=== PATIENT | female | born 1980 | race Caucasian/White ===

== ENCOUNTER 2019-09-13 20:27 | Emergency (ER) | payer SELFPAY ==
[2019-09-13 20:45] VITALS: BP 110/71; PULSE 88; TEMP 98.7; BMI 25.0
[2019-09-13] MEDS ORDERED: ACETAMINOPHEN 325 MG TABLET (FP) PO ONE (21:05)
[2019-09-13] MEDS ORDERED: DIPHTH,PERTUSS(ACELL),TET 0.5 ML DISP.SYRIN IM ONE ×2 (21:05→21:32)
--- NOTE | 2019-09-13 21:08 | PDOC ---
History of Present Illness - General Chief Complaint: Injury Stated Complaint: LACERATION Time Seen by Provider: 09/13/19 20:49 History Source: Patient Exam Limitations: No Limitations - History of Present Illness Initial Comments: 09/13/19 21:06 HISTORY OF PRESENT ILLNESS: 39-year-old female presents to the emergency department for evaluation of laceration to the dorsum of the right foot sustained approximately 1 hour prior to arrival. Patient states she was washing dishes when a dish rolled off the counter falling striking her foot breaking the glass and lacerating the top of her foot. Patient is unsure of her last tetanus shot. No recent travel or sick contacts. PAST MEDICAL HISTORY: Denies past medical history SURGICAL HISTORY: Denies ALLERGIES: No known drug allergies REVIEW OF SYSTEMS General/Constitutional: Denies fever or chills. Denies weakness, weight change. HEENT: Denies change in vision. Denies ear pain or discharge. Denies sore throat. Cardiovascular: Denies chest pain or shortness of breath. Respiratory: Denies cough, wheezing, or hemoptysis. Gastrointestinal: Denies nausea, vomiting, diarrhea or constipation. Denies rectal bleeding. Genitourinary: Denies dysuria, frequency, or change in urination. Musculoskeletal: Denies joint or muscle swelling or pain. Denies neck or back pain. Skin and breasts: See HPI Neurologic: Denies headache, vertigo, loss of consciousness, or loss of sensation. Psychiatric: Denies depression or anxiety. Endocrine: Denies increased thirst. Denies abnormal weight change. Hematologic/Lymphatic: Denies anemia, easy bleeding, or history of blood clots. Allergic/Immunologic: Denies hives or skin allergy. Denies latex allergy. PHYSICAL EXAM General Appearance: Well-appearing, appropriately dressed. No apparent distress , no intoxication. Respiratory/Chest: Lungs CTAB. No shortness of breath, chest tenderness, respiratory distress, accessory muscle use. No crackles, rales, rhonchi, stridor , wheezing, dullness Cardiovascular: RRR. S1, S2. No JVD, murmur, bradycardia, tachycardia. Vascular Pulses: Dorsalis-Pedis (R): 2+, Dorsalis-Pedis (L): 2+ Musculoskeletal/Extremities: Normal inspection. Normal capillary refill. Pelvis Stable. No CVA tenderness. No tenderness to extremities, pedal edema, erythema or deformity. Full flexion and extension of the right toes noted. Full sensation distal to the injury. Swelling and slight hyperpigmented discoloration present distal to laceration-? forming hematoma. Integumentary: Approximate 1 cm linear superficial laceration present to the dorsum of the right foot over the second metatarsal. Past History - Past Medical History Allergies/Adverse Reactions: Allergies Allergy/AdvReac Type Severity Reaction Status Date / Time No Known Allergies Allergy Verified 09/13/19 21:12 Home Medications: Ambulatory Orders NK [No Known Home Medication] 09/13/19 COPD: No - Psycho Social/Smoking Cessation Hx Smoking History: Never smoked *Physical Exam - Vital Signs Last Vital Signs Temp Pulse Resp BP Pulse Ox 98.7 F 88 19 110/71 100 09/13/19 20:34 09/13/19 20:34 09/13/19 20:34 09/13/19 20:34 09/13/19 20:34 Procedures - Consent Consent obtained: Verbal, From Patient - Laceration/Wound Repair Right Dorsal Foot Wound Length: to 2.5 cm Wound Explored: clean Wound's Depth, Shape: superficial, linear Irrigated w/ Saline: Yes Betadine Prep: Yes Anesthesia: 1% Lidocaine w/ Epi Amount of Anesthetic (ccs): 2 Wound Debrided: moderate Wound Repaired With: Sutures Suture Size/Type: 4:0, nylon Number of Sutures: 3 Layer Closure: Yes (Figure 8 suture placed for hemostasis) Deep Layer Suture Size/Type: 4:0, chromic Number of Deep Layer Sutures: 2 Sterile Dressing Applied: Yes Splint Applied: No Progress: 09/13/19 23:49 Neurovascular status after repair is within normal limits and unchanged from prior to suturing. Patient tolerated well. 09/13/19 23:49 Medical Decision Making - Medical Decision Making 09/13/19 21:08 A/P: 39-year-old woman with laceration to the dorsum of the right foot X-ray to evaluate for foreign body Boostrix Laceration repair-see procedure note for details Likely discharge 09/13/19 23:47 X-rays of the right foot as read by me: No acute fractures or dislocations are present. Minor soft tissue swelling to the dorsum of the right foot. No foreign bodies are noted. Discharge home Discharge - Discharge Information Problems reviewed: Yes Clinical Impression/Diagnosis: Laceration of foot Qualifiers: Encounter type: initial encounter Laterality: right Qualified Code(s): S91.311A - Laceration without foreign body, right foot, initial encounter Condition: Stable Disposition: HOME - Admission No - Follow up/Referral - Patient Discharge Instructions Patient Printed Discharge Instructions: DI for Laceration Repair Additional Instructions: Keep wound clean and dry Avoid strenuous activity/exercise to create a hot or sweaty environment until sutures are removed Reapply bacitracin ointment 2 times a day until sutures are removed Return to emergency Department or private physician in 7-10 days for suture removal May use Tylenol or Motrin for pain relief Return immediately to emergency department for redness, swelling, pain, or signs of infection - Post Discharge Activity
[2019-09-13] MEDS ORDERED: ACETAMINOPHEN 325 MG TABLET (FP) ONE (21:25)
[2019-09-13] MEDS ORDERED: LIDOCAINE 1%/EPI 1:100000 (20 ML MULTI DOSE VIAL) ONE (22:00)
--- NOTE | 2019-09-14 00:14 | PDOC ---
*Physical Exam - Vital Signs Last Vital Signs Temp Pulse Resp BP Pulse Ox 98.7 F 88 19 110/71 100 09/13/19 20:34 09/13/19 20:34 09/13/19 20:34 09/13/19 20:34 09/13/19 20:34 ED Treatment Course - Medications Given in the ED: ED Medications Discontinued Medications Generic Name Dose Route Start Last Admin Trade Name Easton PRN Reason Stop Dose Admin Acetaminophen 975 mg 09/13/19 21:05 09/13/19 21:26 Tylenol - PO 09/13/19 21:06 975 mg ONCE ONE Administration Diphtheria/Tetanus/Acell Pertussis 0.5 ml 09/13/19 21:05 09/13/19 21:33 Boostrix - IM 09/13/19 21:06 0.5 ml .ONCE ONE Administration Medical Decision Making - Medical Decision Making 09/14/19 00:13 Case reviewed, agree with assessment and plan Discharge - Discharge Information Problems reviewed: Yes Clinical Impression/Diagnosis: Laceration of foot Qualifiers: Encounter type: initial encounter Laterality: right Qualified Code(s): S91.311A - Laceration without foreign body, right foot, initial encounter Condition: Stable Disposition: HOME - Follow up/Referral - Patient Discharge Instructions Patient Printed Discharge Instructions: DI for Laceration Repair Additional Instructions: Keep wound clean and dry Avoid strenuous activity/exercise to create a hot or sweaty environment until sutures are removed Reapply bacitracin ointment 2 times a day until sutures are removed Return to emergency Department or private physician in 7-10 days for suture removal May use Tylenol or Motrin for pain relief Return immediately to emergency department for redness, swelling, pain, or signs of infection - Post Discharge Activity
== END 2019-09-13 23:18 | disposition home or self-care (01) ==
LOC: JER 20:27
PROC: 3E0234Z Introduction of Serum, Toxoid and Vaccine into Muscle, Percutaneous Approach (ICD-10-PCS; principal; 2019-09-13)
DX: S91.311A Laceration without foreign body, right foot, initial encounter (principal); W25.XXXA Contact with sharp glass, initial encounter; Y93.G1 Activity, food preparation and clean up; Y92.9 Unspecified place or not applicable
CPT/HCPCS: 73630-TC-RT-FY; 90715; 99282-25

== ENCOUNTER 2020-04-09 16:25 | Inpatient (IN) | payer OTHER ==
--- NOTE | 2020-04-09 16:33 | PDOC ---
Rapid Medical Evaluation Chief Complaint: Pain, Acute Time Seen by Provider: 04/09/20 16:28 Medical Evaluation: Allergies Allergy/AdvReac Type Severity Reaction Status Date / Time No Known Allergies Allergy Verified 04/09/20 16:28 04/09/20 16:28 39 year old female no pmhx complaining of lower abdominal pain x 2 days r/o appendicitis sent by macie PUTNAM pshx of hemorrhoid removal PE: RRR CTA TTP to RLQ and LLQ Plan: Abdominal labs GI cocktail Reassess for potential for CT Pt moved to ED for further eval
[2020-04-09] MEDS ORDERED: MAG HYDROX/AL HYDROX/SIMETH 30 ML UNIT-DOSE CUP PO ONE (16:34)
[2020-04-09] MEDS ORDERED: ACETAMINOPHEN 500 MG TABLET (FP) PO ONE (16:35)
[2020-04-09] MEDS ORDERED: ONDANSETRON 4 MG/2 ML VIAL IVPUSH ONE ×3 (16:35→22:20)
[2020-04-09 17:18] LABS: EPI CELLS 16 /uL (0-25.1); HYALINE CASTS 2 /uL (0-3.1); PH,URINE 5.5 (5.0-8.0); URINE APPEARANCE CLEAR; URINE BACTERIA 69 /uL (0-1359); URINE BILIRUBIN NEGATIVE (NEGATIVE); URINE COLOR YELLOW; URINE GLUCOSE (UA) NEGATIVE (NEGATIVE); URINE KETONE TRACE (NEGATIVE); URINE LEUK ESTERASE NEGATIVE (NEGATIVE); URINE NITRITE NEGATIVE (NEGATIVE); URINE PROTEIN 1+ (NEGATIVE); URINE RBC 180 /uL (0-23.9); URINE UROBILINOGEN 4.0 E.U/dl mg/dL (0.2-1.0); URINE WBC 10 /uL (0-25.8)
[2020-04-09] MEDS ORDERED: FAMOTIDINE 20 MG/50 ML IVPB 20 MG/50 ML MG IVPB ONE ×2 (17:39→18:53)
[2020-04-09] MEDS ORDERED: ACETAMINOPHEN INJECTION 100 ML IVPB ONE (17:39)
[2020-04-09 18:00] LABS: BASO % 0.1 % (0-2.0); HEMATOCRIT 36.5 % (32.4-45.2); HEMOGLOBIN 12.1 GM/dL (10.7-15.3); LYMPH % 7.2 % (8-40); MCH 27.1 pg (25.7-33.7); MCHC 33.1 g/dl (32.0-36.0); MEAN CELL VOLUME 81.9 fl (80-96); MEAN PLT VOLUME 8.4 fl (7.5-11.1); MONO % 3.3 % (3.8-10.2); NEUT % 88.4 % (42.8-82.8); PLATELET COUNT 246 K/MM3 (134-434); RBC 4.46 M/mm3 (3.60-5.2); RDW 14.2 % (11.6-15.6); WHITE BLOOD COUNT 13.6 K/mm3 (4.0-10.0)
[2020-04-09 18:25] LABS: ALBUMIN 4.3 g/dl (3.4-5.0); ALK PHOS 86 U/L (45-117); ANION GAP 9 MMOL/L (8-16); BILIRUBIN,TOTAL 0.7 mg/dL (0.2-1); CALCIUM 9.3 mg/dL (8.5-10.1); CHLORIDE 103 mmol/L (98-107); CO2 24 mmol/L (21-32); CREATININE 0.8 mg/dL (0.55-1.3); GLUCOSE,RANDOM 93 mg/dL (74-106); LIPASE 85 U/L (73-393); POTASSIUM 3.5 mmol/L (3.5-5.1); SGOT/AST 11 U/L (15-37); SGPT/ALT 12 U/L (13-61); SODIUM 136 mmol/L (136-145); TOT PROT 8.1 g/dl (6.4-8.2)
[2020-04-09] MEDS ORDERED: ACETAMINOPHEN 1000 MG/100 ML VIAL (NON FORMULARY) IVPB ONE (18:53)
[2020-04-09] MEDS ORDERED: HYDROmorphone HCL CARPU-JECT 2 MG/1 ML DISP.SYRIN IVPUSH ONE (20:50)
[2020-04-09] MEDS ORDERED: HYDROmorphone HCl 2 MG/ML VIAL ONE (21:04)
--- NOTE | 2020-04-09 22:36 | PDOC ---
History of Present Illness - General Chief Complaint: Pain, Acute Stated Complaint: SENT BY DOC Time Seen by Provider: 04/09/20 16:28 - History of Present Illness Initial Comments: 04/09/20 22:35 39-year-old female presents for evaluation of abdominal pain x3 days associated nausea one episode of diarrhea no comorbidities Past History - Medical History Allergies/Adverse Reactions: Allergies Allergy/AdvReac Type Severity Reaction Status Date / Time No Known Allergies Allergy Verified 04/09/20 16:28 Home Medications: Ambulatory Orders NK [No Known Home Medication] 09/13/19 COPD: No - Surgical History GI Surgery: Yes - Immunization History Immunization Up to Date: Yes - Psycho-Social/Smoking History Smoking History: Never smoked - Substance Abuse Hx (Audit-C & DAST Scrn) How often the patient has a drink containing alcohol: Never Score: In Men: 4 or > Positive; In Women: 3 or > Positive: 0 Screen Result (Pos requires Nsg. Audit-10AR): Negative In the last yr the pt used illegal drug/Rx for NonMed reason: No Score: Yes response is considered Positive: 0 Screen Result (Positive result requires Nsg. DAST-10): Negative Review of Systems - Review of Systems ABD/GI: Yes: See HPI, Diarrhea, Nausea. No: Vomiting *Physical Exam - Vital Signs Last Vital Signs Temp Pulse Resp BP Pulse Ox 98.4 F 72 20 111/69 100 04/09/20 16:30 04/09/20 21:42 04/09/20 16:30 04/09/20 21:42 04/09/20 21:42 - Physical Exam 04/09/20 22:35 GENERAL: The patient is awake, alert, and fully oriented, in no acute distress. HEAD: Normal with no signs of trauma. EYES: sclera anicteric, conjunctiva clear. ENT: Ears normal tympanic membranes normal oropharynx clear uvula midline NECK: Normal range of motion LUNGS: Breath sounds equal, clear to auscultation bilaterally. No wheezes, and no crackles. HEART: S1 and S2 without murmur, rub or gallop. ABDOMEN: Soft, Right and left lower quadrant tenderness without rebound or guarding, normoactive bowel sounds. No guarding, no rebound. No masses. EXTREMITIES: Normal range of motion, no edema. No clubbing or cyanosis. No cords, erythema, or tenderness. NEUROLOGICAL: Cranial nerves II through XII grossly intact. PSYCH: Normal mood, normal affect. SKIN: Warm, Dry, normal turgor, no rashes or lesions noted. ED Treatment Course - LABORATORY CBC & Chemistry Diagram: 04/09/20 17:15 04/09/20 17:15 - ADDITIONAL ORDERS Additional order review: Laboratory Results 04/09/20 04/09/20 04/09/20 17:15 17:15 17:15 PTT (Actin FS) Sodium Potassium Chloride Carbon Dioxide Anion Gap BUN Creatinine Est GFR (CKD-EPI)AfAm Est GFR (CKD-EPI)NonAf Random Glucose Lactic Acid 0.7 Calcium Total Bilirubin AST ALT Alkaline Phosphatase Total Protein Albumin Lipase Beta HCG, Quant Serum , Qual Negative Urine Color Urine Appearance Urine pH Ur Specific [place] Urine Protein Urine Glucose (UA) Urine Ketones Urine Blood Urine Nitrite Urine Bilirubin Urine Urobilinogen Ur Leukocyte Esterase Urine WBC (Auto) Urine RBC (Auto) Urine Casts (Auto) U Epithel Cells (Auto) Urine Bacteria (Auto) Blood Type A POSITIVE Antibody Screen Negative 04/09/20 04/09/20 04/09/20 17:15 17:15 17:10 PTT (Actin FS) 36.8 H Sodium 136 Potassium 3.5 Chloride 103 Carbon Dioxide 24 Anion Gap 9 BUN 8.0 Creatinine 0.8 Est GFR (CKD-EPI)AfAm 108.39 Est GFR (CKD-EPI)NonAf 93.52 Random Glucose 93 Lactic Acid Calcium 9.3 Total Bilirubin 0.7 AST 11 L ALT 12 L Alkaline Phosphatase 86 Total Protein 8.1 Albumin 4.3 Lipase 85 Beta HCG, Quant < 1.0 Serum , Qual Urine Color Yellow Urine Appearance Clear Urine pH 5.5 Ur Specific [place] 1.033 Urine Protein 1+ H Urine Glucose (UA) Negative Urine Ketones Trace H Urine Blood 3+ H Urine Nitrite Negative Urine Bilirubin Negative Urine Urobilinogen 4.0 e.u/dl H Ur Leukocyte Esterase Negative Urine WBC (Auto) 10 Urine RBC (Auto) 180 Urine Casts (Auto) 2 U Epithel Cells (Auto) 16 Urine Bacteria (Auto) 69 Blood Type Antibody Screen 04/09/20 17:15 RBC 4.46 MCV 81.9 MCHC 33.1 RDW 14.2 MPV 8.4 Neutrophils % 88.4 H Lymphocytes % 7.2 L Monocytes % 3.3 L Eosinophils % 1.0 Basophils % 0.1 - RADIOLOGY Radiology Studies Ordered: Category Date Time Status ABDOMEN & PELVIS CT W/O CONTR [CT] Stat CT Scan 04/09/20 19:12 Completed ABDOMEN & PELVIS CT WITH CONTR [CT] Stat CT Scan 04/09/20 20:53 Ordered - Medications Given in the ED: ED Medications Discontinued Medications Generic Name Dose Route Start Last Admin Trade Name Easton PRN Reason Stop Dose Admin Acetaminophen 1,000 mg 04/09/20 16:35 04/09/20 18:55 Tylenol - PO 04/09/20 16:36 Not Given ONCE ONE Acetaminophen 1,000 mg 04/09/20 18:53 04/09/20 18:55 Ofirmev Injection - IVPB 04/09/20 18:54 1,000 mg ONCE ONE Administration Al Hydroxide/Mg Hydroxide 30 ml 04/09/20 16:34 04/09/20 18:55 Mylanta Oral Suspension - PO 04/09/20 16:35 Not Given ONCE ONE Hydromorphone HCl 0.5 mg 04/09/20 20:50 04/09/20 21:15 Dilaudid Injection - IVPUSH 04/09/20 20:51 0.5 mg ONCE ONE Administration Famotidine/Sodium Chloride 20 mg in 50 mls @ 100 mls/hr 04/09/20 18:53 04/09/20 18:55 Pepcid 20 Mg Premixed Ivpb - IVPB 04/09/20 19:22 100 mls/hr ONCE ONE Administration Ondansetron HCl 4 mg 04/09/20 16:35 04/09/20 17:46 Zofran Injection IVPUSH 04/09/20 16:36 4 mg ONCE ONE Administration Ondansetron HCl 4 mg 04/09/20 20:50 04/09/20 21:15 Zofran Injection IVPUSH 04/09/20 20:51 4 mg ONCE ONE Administration Medical Decision Making - Medical Decision Making 04/09/20 22:35 Patient will be signed out to the emergency room for further evaluation and follow-up on p.o. and IV contrast CAT scan studies. This case was discussed with emergency room attending. Discharge - Discharge Information Problems reviewed: Yes Clinical Impression/Diagnosis: Abdominal pain - Follow up/Referral - Patient Discharge Instructions - Post Discharge Activity
--- NOTE | 2020-04-09 22:49 | PDOC ---
*Physical Exam - Vital Signs Last Vital Signs Temp Pulse Resp BP Pulse Ox 98.4 F 72 20 111/69 100 04/09/20 16:30 04/09/20 21:42 04/09/20 16:30 04/09/20 21:42 04/09/20 21:42 - Physical Exam Gen: AAOx 3, no acute distress, comfortable, no signs of respiratory distress HENT: atraumatic, normocephalic with no laceration or contusion. Nasal mucosa without erythema. Oropharynx without erythema or exudates. Mucous membranes moist. EYES: PERRL, EOM intact, conjunctiva pink NECK: supple; trachea midline; no JVD, no lymphadenopathy, or thyromegaly CV: RRR no murmurs, gallops, or rubs. CHEST: CTA b/l no wheezing, rales or rhonchi ABD: +BS/ND. TTP to LLQ and RLQ; soft, no rebound, voluntary guarding EXTREMITY: no cyanosis or erythema. 2+ dorsalis pedis, posterior tibial, and radial pulse. No pedal edema; no calf swelling or tenderness SKIN: no rash, warm and dry, no diaphoresis HEME: no purpura or ecchymosis NEURO: normal speech, CN II-XII intact, sensation intact, normal gait, no cerebellar deficits MS: 5/5 strength in all extremities, FROM intact in all extremities. 04/09/20 22:45 ED Treatment Course - LABORATORY CBC & Chemistry Diagram: 04/09/20 17:15 04/09/20 17:15 - ADDITIONAL ORDERS Additional order review: Laboratory Results 04/09/20 04/09/20 04/09/20 17:15 17:15 17:15 PTT (Actin FS) Sodium Potassium Chloride Carbon Dioxide Anion Gap BUN Creatinine Est GFR (CKD-EPI)AfAm Est GFR (CKD-EPI)NonAf Random Glucose Lactic Acid 0.7 Calcium Total Bilirubin AST ALT Alkaline Phosphatase Total Protein Albumin Lipase Beta HCG, Quant Serum , Qual Negative Urine Color Urine Appearance Urine pH Ur Specific [place] Urine Protein Urine Glucose (UA) Urine Ketones Urine Blood Urine Nitrite Urine Bilirubin Urine Urobilinogen Ur Leukocyte Esterase Urine WBC (Auto) Urine RBC (Auto) Urine Casts (Auto) U Epithel Cells (Auto) Urine Bacteria (Auto) Blood Type A POSITIVE Antibody Screen Negative 04/09/20 04/09/20 04/09/20 17:15 17:15 17:10 PTT (Actin FS) 36.8 H Sodium 136 Potassium 3.5 Chloride 103 Carbon Dioxide 24 Anion Gap 9 BUN 8.0 Creatinine 0.8 Est GFR (CKD-EPI)AfAm 108.39 Est GFR (CKD-EPI)NonAf 93.52 Random Glucose 93 Lactic Acid Calcium 9.3 Total Bilirubin 0.7 AST 11 L ALT 12 L Alkaline Phosphatase 86 Total Protein 8.1 Albumin 4.3 Lipase 85 Beta HCG, Quant < 1.0 Serum , Qual Urine Color Yellow Urine Appearance Clear Urine pH 5.5 Ur Specific [place] 1.033 Urine Protein 1+ H Urine Glucose (UA) Negative Urine Ketones Trace H Urine Blood 3+ H Urine Nitrite Negative Urine Bilirubin Negative Urine Urobilinogen 4.0 e.u/dl H Ur Leukocyte Esterase Negative Urine WBC (Auto) 10 Urine RBC (Auto) 180 Urine Casts (Auto) 2 U Epithel Cells (Auto) 16 Urine Bacteria (Auto) 69 Blood Type Antibody Screen 04/09/20 17:15 RBC 4.46 MCV 81.9 MCHC 33.1 RDW 14.2 MPV 8.4 Neutrophils % 88.4 H Lymphocytes % 7.2 L Monocytes % 3.3 L Eosinophils % 1.0 Basophils % 0.1 - Medications Given in the ED: ED Medications Discontinued Medications Generic Name Dose Route Start Last Admin Trade Name Easton PRN Reason Stop Dose Admin Acetaminophen 1,000 mg 04/09/20 16:35 04/09/20 18:55 Tylenol - PO 04/09/20 16:36 Not Given ONCE ONE Acetaminophen 1,000 mg 04/09/20 18:53 04/09/20 18:55 Ofirmev Injection - IVPB 04/09/20 18:54 1,000 mg ONCE ONE Administration Al Hydroxide/Mg Hydroxide 30 ml 04/09/20 16:34 04/09/20 18:55 Mylanta Oral Suspension - PO 04/09/20 16:35 Not Given ONCE ONE Hydromorphone HCl 0.5 mg 04/09/20 20:50 04/09/20 21:15 Dilaudid Injection - IVPUSH 04/09/20 20:51 0.5 mg ONCE ONE Administration Famotidine/Sodium Chloride 20 mg in 50 mls @ 100 mls/hr 04/09/20 18:53 04/09/20 18:55 Pepcid 20 Mg Premixed Ivpb - IVPB 04/09/20 19:22 100 mls/hr ONCE ONE Administration Ondansetron HCl 4 mg 04/09/20 16:35 04/09/20 17:46 Zofran Injection IVPUSH 04/09/20 16:36 4 mg ONCE ONE Administration Ondansetron HCl 4 mg 04/09/20 20:50 04/09/20 21:15 Zofran Injection IVPUSH 04/09/20 20:51 4 mg ONCE ONE Administration Medical Decision Making - Medical Decision Making Pt was signed out to me pending CT abdomen and pelvis with IV and PO contrast by MARGARET Justin Labs show WBC of 13.6, urine with blood w/o signs of UTI. Rest of labs noncontributory. CT without contrast shows no evidence of stone. Pts pain well controlled with Dilaudid Will reassess and form disposition based on CT AP with contrast. CT with contrast shows acute appendicitis, pt given zoysn in ED Surgery team consulted and made aware of patient Pt admitted to medicine for further management of care Discharge - Discharge Information Problems reviewed: Yes Clinical Impression/Diagnosis: Abdominal pain Qualifiers: Abdominal location: right lower quadrant Qualified Code(s): R10.31 - Right lower quadrant pain - Admission Yes - Follow up/Referral - Patient Discharge Instructions - Post Discharge Activity
[2020-04-10] MEDS ORDERED: PIPERACILLIN/TAZOB 3.375 GM 3.375 GM in DEXTROSE 5%-WATER - 50 ML IVPB ONE (00:21)
[2020-04-10] MEDS ORDERED: PIPERACILLIN/TAZOB 3.375 GM 3.375 GM/50 ML BAG IVPB ONE ×2 (00:42→07:21)
--- NOTE | 2020-04-10 00:49 | PN ---
Teaching Attending Note Name of Resident: Naeem Clark ATTENDING PHYSICIAN STATEMENT I saw and evaluated the patient. I reviewed the resident's note and discussed the case with the resident. I agree with the resident's findings and plan as documented. SUBJECTIVE: Patient is a 39 year old woman with no reported PMH who presents to the ER with abdominal pain for three days. Reports associated nausea and two episodes of diarrhea. Recently completed a course of Amoxicillin for a dental procedure. Denies fever, chills, SOB, chest pain, vomiting, headache, melena, hematuria, dysuria or hematochezia. LMP was February 04, 2020. Patient is on Depo-Provera contraceptive injections q 3 months and sees her period every 3 months. Denies alcohol, tobacco or illicit drug use. No sick contacts or recent travels. Family history is unremarkable. OBJECTIVE: Alert Vital Signs Period Temp Pulse Resp BP Sys/Vences Pulse Ox Last 24 Hr 98.4 F 72-101 20 111-136/69-85 100-100 HEENT: No Jaundice, eye redness or discharge, PERRLA, EOMI. Normocephalic, atraumatic. External ears are normal and hearing is grossly intact. No nasal discharge. Neck: Supple, nontender. No palpable adenopathy or thyromegaly. No JVD Chest: Good effort. Clear to auscultation and percussion. Heart: Regular. No S3, rub or murmur Abdomen: Not distended, soft, diffuse tenderness and no HSM. No rebound or guarding. Normal bowel sounds. Ext: Peripheral pulses intact. No leg edema. Skin: Warm and dry. No petechiae, rash or ecchymosis. Neuro: Alert. Oriented x3. CN 2-12 grossly intact. Sensation grossly intact in all four extremities and DTR are symmetric. Psych: Appropriate mood and affect. Good insight. Home Medications Medication Instructions Recorded NK [No Known Home Medication] 09/13/19 Abnormal Lab Results 04/09/20 04/09/20 04/09/20 17:10 17:15 17:15 WBC 13.6 H Absolute Neuts (auto) 12.1 H Neutrophils % 88.4 H Lymphocytes % 7.2 L Monocytes % 3.3 L PTT (Actin FS) 36.8 H AST ALT Urine Protein 1+ H Urine Ketones Trace H Urine Blood 3+ H Urine Urobilinogen 4.0 e.u/dl H 04/09/20 17:15 WBC Absolute Neuts (auto) Neutrophils % Lymphocytes % Monocytes % PTT (Actin FS) AST 11 L ALT 12 L Urine Protein Urine Ketones Urine Blood Urine Urobilinogen Current Medications Generic Name Dose Route Start Last Admin Trade Name Freq PRN Reason Stop Dose Admin Dextrose/Sodium Chloride 1,000 mls @ 100 mls/hr 04/10/20 03:30 04/10/20 04:22 D5-Ns - IV 100 mls/hr ASDIR MERI Administration Piperacillin Sod/Tazobactam 50 mls @ 100 mls/hr 04/10/20 07:00 Sod 3.375 gm/ Dextrose IVPB Q8H-IV MERI Protocol Morphine Sulfate 1 mg 04/10/20 03:29 Morphine Sulfate IVPUSH Q4H PRN PAIN LEVEL 7 - 10 Potassium Chloride 40 meq 04/10/20 04:22 K-Dur - PO 04/10/20 04:23 ONCE ONE ASSESSMENT AND PLAN: 1. Appendicitis ? - CT scan of abdomen/pelvis with IV and PO contrast shows inflammatory changes in the RLQ but the appendix is not visualized. ER staff prescribed Tylenol, Zosyn, Dilaudid, Pepcid, Zofran and Mylanta for the patient. Surgery consulted. Will keep her NPO and treat with IV D5/NS and IV Zosyn. PTT is elevated and INR is pending - will monitor. Will repeat urinalysis in view of hematuria and send sample for stool studies including C.diff toxin, if she has anymore loose stools. Consult Surgery. EKG shows NSR at 68/minute and QTc [address]-T wave changes. Viral testing for COVID-19 ordered and patient placed on airborne, droplet and contact isolation. 2. DVT prophylaxis - SCD, early ambulation. 3. Advance directives - Full code
[2020-04-10] MEDS ORDERED: DEXTROSE 5%-NORMAL SALINE 1,000 ML IV SCH (03:30)
--- NOTE | 2020-04-10 03:39 | HP ---
CHIEF COMPLAINT: I have Abdominal pain PCP: none HISTORY OF PRESENT ILLNESS: Mrs. Fitzgerald is a 39 years old female with no significant PMH, who presented with Suprapubic pain for 3 days. She reports the pain initiated when she was sitting in [employer]. She describes the pain as crampy, episodic, nonradiating pain that is localized to the suprapubic area. The pain is aggravated with any movements and relieved with emptying her bladder and also with Ibuprofen at times. The abdominal pain is associated with nausea and an episode of Diarrhea. Her LMP was on February 04 2020, patient is currently on Depo-Provera injections every 3 months. She also reports that she was on amoxicillin for 1 week for a dental procedure and stopped taking it on tuesday. ER course was notable for: (1) Abdominal pain (2) (3) Recent Travel: none PAST MEDICAL HISTORY: none PAST SURGICAL HISTORY: Hemorrhoidectomy Social History: -LMP: February 04 2020 -Currently sexually active -never had a STI testing Allergies No Known Allergies Allergy (Verified 04/09/20 16:28) HOME MEDICATIONS: Home Medications Medication Instructions Recorded NK [No Known Home Medication] 09/13/19 REVIEW OF SYSTEMS CONSTITUTIONAL: Present: Loss of appetite Absent: fever, chills, malaise, weight change CARDIOVASCULAR: Absent: chest pain, palpitations, lightheadedness, peripheral edema RESPIRATORY: Absent:shortness of breath, dyspnea GASTROINTESTINAL: present: Abdominal pain, nausea, Diarrhea Absent: abdominal distension, vomiting, constipation, GENITOURINARY: Absent: dysuria, frequency, urgency, hesitancy, hematuria, flank pain, genital pain. PHYSICAL EXAMINATION Vital Signs - 24 hr 04/09/20 04/09/20 04/10/20 16:30 21:42 01:40 Temperature 98.4 F 98.8 F Pulse Rate 101 H Pulse Rate [ 72 79 Left Radial] Respiratory 20 15 Rate Blood Pressure 136/85 Blood Pressure 111/69 118/67 [Right Arm] O2 Sat by Pulse 100 100 100 Oximetry (%) GENERAL: Awake, alert, and fully oriented, in no acute distress. HEAD: Normal with no signs of trauma. EYES: Pupils equal, round and reactive to light, extraocular movements intact, sclera anicteric, conjunctiva clear. EARS, NOSE, THROAT: Ears normal, nares patent, oropharynx clear without exudates. Moist mucous membranes. LUNGS: Breath sounds equal, clear to auscultation bilaterally. No wheezes, and no crackles. No accessory muscle use. HEART: Regular rate and rhythm, normal S1 and S2 without murmur, rub or gallop. ABDOMEN: Soft, tender to palpation and percussion, + rebound tenderness, + obturator sign, not distended, normoactive bowel sounds, no guarding, no masses. UPPER EXTREMITIES: 2+ pulses, warm, well-perfused. No cyanosis. No peripheral ed cuate. LOWER EXTREMITIES: 2+ pulses, warm, well-perfused. No calf tenderness. No peripheral edema. NEUROLOGICAL: Cranial nerves II-XII intact. Normal speech. Normal gait. PSYCHIATRIC: Cooperative. Good eye contact. Appropriate mood and affect. SKIN: Warm, dry, no rashes or lesions noted.Th Laboratory Results - last 24 hr 04/09/20 04/09/20 04/09/20 17:10 17:15 17:15 WBC 13.6 H RBC 4.46 Hgb 12.1 Hct 36.5 MCV 81.9 MCH 27.1 MCHC 33.1 RDW 14.2 Plt Count 246 MPV 8.4 Absolute Neuts (auto) 12.1 H Neutrophils % 88.4 H Lymphocytes % 7.2 L Monocytes % 3.3 L Eosinophils % 1.0 Basophils % 0.1 Nucleated RBC % 0 PTT (Actin FS) 36.8 H Sodium Potassium Chloride Carbon Dioxide Anion Gap BUN Creatinine Est GFR (CKD-EPI)AfAm Est GFR (CKD-EPI)NonAf Random Glucose Lactic Acid Calcium Total Bilirubin AST ALT Alkaline Phosphatase Total Protein Albumin Lipase Beta HCG, Quant Serum , Qual Urine Color Yellow Urine Appearance Clear Urine pH 5.5 Ur Specific [place] 1.033 Urine Protein 1+ H Urine Glucose (UA) Negative Urine Ketones Trace H Urine Blood 3+ H Urine Nitrite Negative Urine Bilirubin Negative Urine Urobilinogen 4.0 e.u/dl H Ur Leukocyte Esterase Negative Urine WBC (Auto) 10 Urine RBC (Auto) 180 Urine Casts (Auto) 2 U Epithel Cells (Auto) 16 Urine Bacteria (Auto) 69 Blood Type Antibody Screen 04/09/20 04/09/20 04/09/20 17:15 17:15 17:15 WBC RBC Hgb Hct MCV MCH MCHC RDW Plt Count MPV Absolute Neuts (auto) Neutrophils % Lymphocytes % Monocytes % Eosinophils % Basophils % Nucleated RBC % PTT (Actin FS) Sodium 136 Potassium 3.5 Chloride 103 Carbon Dioxide 24 Anion Gap 9 BUN 8.0 Creatinine 0.8 Est GFR (CKD-EPI)AfAm 108.39 Est GFR (CKD-EPI)NonAf 93.52 Random Glucose 93 Lactic Acid 0.7 Calcium 9.3 Total Bilirubin 0.7 AST 11 L ALT 12 L Alkaline Phosphatase 86 Total Protein 8.1 Albumin 4.3 Lipase 85 Beta HCG, Quant < 1.0 Serum , Qual Urine Color Urine Appearance Urine pH Ur Specific [place] Urine Protein Urine Glucose (UA) Urine Ketones Urine Blood Urine Nitrite Urine Bilirubin Urine Urobilinogen Ur Leukocyte Esterase Urine WBC (Auto) Urine RBC (Auto) Urine Casts (Auto) U Epithel Cells (Auto) Urine Bacteria (Auto) Blood Type A POSITIVE Antibody Screen Negative 04/09/20 17:15 WBC RBC Hgb Hct MCV MCH MCHC RDW Plt Count MPV Absolute Neuts (auto) Neutrophils % Lymphocytes % Monocytes % Eosinophils % Basophils % Nucleated RBC % PTT (Actin FS) Sodium Potassium Chloride Carbon Dioxide Anion Gap BUN Creatinine Est GFR (CKD-EPI)AfAm Est GFR (CKD-EPI)NonAf Random Glucose Lactic Acid Calcium Total Bilirubin AST ALT Alkaline Phosphatase Total Protein Albumin Lipase Beta HCG, Quant Serum , Qual Negative Urine Color Urine Appearance Urine pH Ur Specific [place] Urine Protein Urine Glucose (UA) Urine Ketones Urine Blood Urine Nitrite Urine Bilirubin Urine Urobilinogen Ur Leukocyte Esterase Urine WBC (Auto) Urine RBC (Auto) Urine Casts (Auto) U Epithel Cells (Auto) Urine Bacteria (Auto) Blood Type Antibody Screen ASSESSMENT/PLAN: This is a 39 years old female with no significant PMH, presented with 3 days of suprapubic abdominal pain, admitted for management of possible appendicitis #Appendicitis Assessment: - 3 days of suprapubic pain with rebound tenderness - WBC 13.8 with % yudy 88.4 - CT showed inflammatory changes in RLQ Plan: - Continue Zosyn 3.375gm IV - Surgery is consulted Juan Mijares, [facility] F/U with recommendations - She is placed NPO - Morphine PRN - Fluids: D5 NS for calorie maintenance #Microscopic Hematuria Assessment: - 3+ blood on UA, denies any gross hematuria Plan: - Repeat UA in the morning - PTT is elevated, Follow up with PT/INR #Diarrhea Assessment: - 1D of Diarrhea - Hx of recent amoxicillin use for 7days Plan: - Stool culture for C.Diff - Monitor for more episodes of Diarrhea #DVT Prophylaxis: SCD Bilateral # Dispo: admitted to Med-Surge Visit type - Emergency Visit Emergency Visit: Yes ED Registration Date: 04/10/20 Care time: The patient presented to the Emergency Department on the above date and was hospitalized for further evaluation of their emergent condition. - New Patient This patient is new to me today: Yes Date on this admission: 04/10/20 - Critical Care Critical Care patient: No ATTENDING PHYSICIAN STATEMENT I saw and evaluated the patient. I reviewed the resident's note and discussed the case with the resident. I agree with the resident's findings and plan as documented. SUBJECTIVE: OBJECTIVE: ASSESSMENT AND PLAN:
[2020-04-10] MEDS ORDERED: POTASSIUM CHLORIDE TABS 20 MEQ TABLET.ER (FP) PO ONE (04:22)
[2020-04-10] MEDS ORDERED: MORPHINE SULFATE 2 MG/ML VIAL ONE ×2 (05:37→09:57)
[2020-04-10] MEDS: MORPHINE SULFATE 2 MG/ML VIAL IVPUSH PRN ×2 (05:42→10:04)
[2020-04-10 06:06] LABS: BASO % 0.2 % (0-2.0); EOS % 1.8 % (0-4.5); HEMATOCRIT 32.9 % (32.4-45.2); HEMOGLOBIN 10.9 GM/dL (10.7-15.3); LYMPH % 8.3 % (8-40); MEAN CELL VOLUME 81.8 fl (80-96); MEAN PLT VOLUME 8.3 fl (7.5-11.1); MONO % 3.5 % (3.8-10.2); NEUT % 86.2 % (42.8-82.8); PLATELET COUNT 224 K/MM3 (134-434); RBC 4.02 M/mm3 (3.60-5.2); RDW 14.3 % (11.6-15.6); WHITE BLOOD COUNT 9.8 K/mm3 (4.0-10.0)
[2020-04-10 06:25] LABS: INR 1.2 (0.83-1.09); PROTHROMBIN TIME (PATIENT) 14.2 SEC (9.7-13.0)
[2020-04-10 06:29] LABS: ALBUMIN 3.4 g/dl (3.4-5.0); BLOOD UREA NITROGEN 5.8 mg/dL (7-18); CALCIUM 8.9 mg/dL (8.5-10.1); CREATININE 0.8 mg/dL (0.55-1.3); MAGNESIUM 2.2 mg/dL (1.8-2.4); PHOSPHOROUS 3.3 mg/dL (2.5-4.9); POTASSIUM 3.6 mmol/L (3.5-5.1); TOT PROT 6.6 g/dl (6.4-8.2)
[2020-04-10] MEDS ORDERED: PIPERACILLIN/TAZOB 3.375 GM 3.375 GM in DEXTROSE 5%-WATER - 50 ML IVPB SCH ×4 (07:00→19:00)
[2020-04-10] MEDS: PIPERACILLIN/TAZOB 3.375 GM 3.375 GM in DEXTROSE 5%-WATER - 50 ML IVPB SCH ×4 (07:23→21:42)
[2020-04-10 08:47] LABS: EPI CELLS 16 /uL (0-25.1); HYALINE CASTS 0 /uL (0-3.1); URINE APPEARANCE CLEAR; URINE BACTERIA 134 /uL (0-1359); URINE BILIRUBIN NEGATIVE (NEGATIVE); URINE COLOR YELLOW; URINE GLUCOSE (UA) 2+ (NEGATIVE); URINE KETONE NEGATIVE (NEGATIVE); URINE LEUK ESTERASE NEGATIVE (NEGATIVE); URINE NITRITE NEGATIVE (NEGATIVE); URINE PROTEIN NEGATIVE (NEGATIVE); URINE RBC 26 /uL (0-23.9); URINE WBC 5 /uL (0-25.8)
--- NOTE | 2020-04-10 08:51 | PN ---
Teaching Attending Note Name of Resident: Kristie Franco ATTENDING PHYSICIAN STATEMENT I saw and evaluated the patient. I reviewed the resident's note and discussed the case with the resident. I agree with the resident's findings and plan as documented. SUBJECTIVE: Patient is c/o having RLQ pain. fever overnight. OBJECTIVE: Vital Signs Temperature 98.2 F 04/10/20 05:00 Pulse Rate 76 04/10/20 08:04 Respiratory Rate 16 04/10/20 08:04 Blood Pressure 114/71 04/10/20 08:04 O2 Sat by Pulse Oximetry (%) 99 04/10/20 08:04 Initial Vital Signs Temp Pulse Resp BP Pulse Ox 98.4 F 101 H 20 136/85 100 04/09/20 16:30 04/09/20 16:30 04/09/20 16:30 04/09/20 16:30 04/09/20 16:30 PE: per resident's note CBCD WBC 9.8 K/mm3 (4.0-10.0) 04/10/20 05:15 RBC 4.02 M/mm3 (3.60-5.2) 04/10/20 05:15 Hgb 10.9 GM/dL (10.7-15.3) 04/10/20 05:15 Hct 32.9 % (32.4-45.2) 04/10/20 05:15 MCV 81.8 fl (80-96) 04/10/20 05:15 MCHC 33.0 g/dl (32.0-36.0) 04/10/20 05:15 RDW 14.3 % (11.6-15.6) 04/10/20 05:15 Plt Count 224 K/MM3 (134-434) 04/10/20 05:15 MPV 8.3 fl (7.5-11.1) 04/10/20 05:15 CMP Sodium 136 mmol/L (136-145) 04/10/20 05:15 Potassium 3.6 mmol/L (3.5-5.1) 04/10/20 05:15 Chloride 104 mmol/L (98-107) 04/10/20 05:15 Carbon Dioxide 25 mmol/L (21-32) 04/10/20 05:15 Anion Gap 7 MMOL/L (8-16) L 04/10/20 05:15 BUN 5.8 mg/dL (7-18) L 04/10/20 05:15 Creatinine 0.8 mg/dL (0.55-1.3) 04/10/20 05:15 Random Glucose 144 mg/dL (74-106) H 04/10/20 05:15 Calcium 8.9 mg/dL (8.5-10.1) 04/10/20 05:15 Total Bilirubin 1.0 mg/dL (0.2-1) 04/10/20 05:15 AST 12 U/L (15-37) L 04/10/20 05:15 ALT 12 U/L (13-61) L 04/10/20 05:15 Alkaline Phosphatase 76 U/L (45-117) 04/10/20 05:15 Total Protein 6.6 g/dl (6.4-8.2) 04/10/20 05:15 Albumin 3.4 g/dl (3.4-5.0) 04/10/20 05:15 Current Medications Generic Name Dose Route Start Last Admin Trade Name Freq PRN Reason Stop Dose Admin Dextrose/Sodium Chloride 1,000 mls @ 100 mls/hr 04/10/20 03:30 04/10/20 04:22 D5-Ns - IV 100 mls/hr ASDIR MERI Administration Piperacillin Sod/Tazobactam 50 mls @ 100 mls/hr 04/10/20 07:00 Sod 3.375 gm/ Dextrose IVPB 04/10/20 19:29 Q6H MERI Protocol Piperacillin Sod/Tazobactam 50 mls @ 100 mls/hr 04/10/20 07:00 04/10/20 07:23 Sod 3.375 gm/ Dextrose IVPB 04/11/20 03:29 100 mls/hr Q6H-IV MERI Administration Protocol Morphine Sulfate 1 mg 04/10/20 03:29 04/10/20 05:42 Morphine Sulfate IVPUSH 1 mg Q4H PRN Administration PAIN LEVEL 7 - 10 Laboratory Tests 04/09/20 04/10/20 17:15 00:40 Serum , Qual Negative COVID-19 (ISHA) Pending CT with contrast shows acute appendicitis ASSESSMENT AND PLAN: This patient is a 39yof with no significant PMHx, who presented with Suprapubic pain for 3 days. The abdominal pain is associated with nausea and an episode of Diarrhea. Her LMP was on February 04 2020, patient is currently on Depo-Provera injections every 3 months. Patient was admitted last night 04/09/2020, for acute apendicitis; presented with WBC of 13.6. # Acute appendicitis on IV Zosyn, ID on the case, notified last night, covid is pending. IVF, npo, pain control # Covid pending DVT px: SCds, heparin sq post surgery
--- NOTE | 2020-04-10 12:00 | CONSULT ---
- Consultation REQUESTING PROVIDER: CONSULT REQUEST: We have been asked to surgically evaluate this patient for acute appendicitis PCP:Iqra Kolb HISTORY OF PRESENT ILLNESS: 39yo F presented to the ED with complaints of 3 days of lower abd tenderness, that worsened and focused in RLQ. Pt states the pain is associated with N/V, but no fever. Pt denies h/o abd surgery. PMHx: denies PSHx: denies Home Medications Medication Instructions Recorded NK [No Known Home Medication] 09/13/19 Allergies Allergy/AdvReac Type Severity Reaction Status Date / Time No Known Allergies Allergy Verified 04/09/20 16:28 REVIEW OF SYSTEMS: CONSTITUTIONAL: Absent: fever, chills, diaphoresis, generalized weakness, malaise, loss of appetite, weight change CARDIOVASCULAR: Absent: chest pain, syncope, palpitations, irregular heart rate, lightheadedness, peripheral edema RESPIRATORY: Absent: cough, shortness of breath, dyspnea with exertion, wheezing, stridor, hemoptysis PHYSICAL EXAM: GENERAL: Awake, alert, and fully oriented, in no acute distress. HEAD: Normal with no signs of trauma. EYES: PERRL, sclera anicteric, conjunctiva clear. NECK: Normal ROM, supple without lymphadenopathy, JVD, or masses. LUNGS: breathing comfortably, No accessory muscle use. HEART: Regular rate and rhythm. ABDOMEN: Soft, nondistended, RLQ point tenderness, positive rebound, +psoas sign MUSCULOSKELETAL: Normal ROM at all joints. No bony deformities or tenderness. No CVA tenderness. UPPER EXTREMITIES: warm, well-perfused. No cyanosis. Cap refill <2 seconds. No peripheral edema. LOWER EXTREMITIES: warm, well-perfused. No calf tenderness. No peripheral edema. NEUROLOGICAL: Normal speech, gait not observed. PSYCH: Cooperative. Good eye contact. Appropriate mood and affect. SKIN: Warm, dry, normal turgor, no rashes or lesions noted. Vital Signs Temperature 98.2 F 04/10/20 05:00 Pulse Rate 76 04/10/20 08:04 Respiratory Rate 16 04/10/20 08:04 Blood Pressure 114/71 04/10/20 08:04 O2 Sat by Pulse Oximetry (%) 99 04/10/20 08:04 Lab Results WBC 9.8 K/mm3 (4.0-10.0) 04/10/20 05:15 RBC 4.02 M/mm3 (3.60-5.2) 04/10/20 05:15 Hgb 10.9 GM/dL (10.7-15.3) 04/10/20 05:15 Hct 32.9 % (32.4-45.2) 04/10/20 05:15 MCV 81.8 fl (80-96) 04/10/20 05:15 MCHC 33.0 g/dl (32.0-36.0) 04/10/20 05:15 RDW 14.3 % (11.6-15.6) 04/10/20 05:15 Plt Count 224 K/MM3 (134-434) 04/10/20 05:15 INR 1.20 (0.83-1.09) H 04/10/20 05:15 Sodium 136 mmol/L (136-145) 04/10/20 05:15 Potassium 3.6 mmol/L (3.5-5.1) 04/10/20 05:15 Chloride 104 mmol/L (98-107) 04/10/20 05:15 Carbon Dioxide 25 mmol/L (21-32) 04/10/20 05:15 Anion Gap 7 MMOL/L (8-16) L 04/10/20 05:15 BUN 5.8 mg/dL (7-18) L 04/10/20 05:15 Creatinine 0.8 mg/dL (0.55-1.3) 04/10/20 05:15 Random Glucose 144 mg/dL (74-106) H 04/10/20 05:15 Calcium 8.9 mg/dL (8.5-10.1) 04/10/20 05:15 Blood Type A POSITIVE 04/09/20 17:15 Antibody Screen Negative 04/09/20 17:15 CT abd/pel: findings consistent with acute appendicitis without abscess. Problem List - Problems (1) Appendicitis, acute Assessment/Plan: Plan -pt will be taken to the OR for lap appy later today -continue NPO, IVF, abx Pt discussed with Dr. Santoyo who agrees with plan Problems reviewed: Yes Code(s): K35.80 - UNSPECIFIED ACUTE APPENDICITIS Qualifiers: Appendicitis abscess presence: without abscess
--- NOTE | 2020-04-10 14:05 | EKG ---
Test Reason : Blood Pressure : / mmHG Vent. Rate : 068 BPM Atrial Rate : 068 BPM P-R Int : 122 ms QRS Dur : 088 ms QT Int : 394 ms P-R-T Axes : 018 072 041 degrees QTc Int : 418 ms NORMAL SINUS RHYTHM NORMAL ECG NO PREVIOUS ECGS AVAILABLE Confirmed by ANGELICA ROSS MD ([id number]) on 04/10/2020 2:05:23 PM Referred By: Confirmed By:ANGELICA ROSS MD
[2020-04-10] MEDS ORDERED: BUPIVACAINE HCL/PF 0.25% (2.5MG/ML) 10 ML VIAL ONE (14:55)
[2020-04-10 15:02] VITALS: BMI 20.5
[2020-04-10] MEDS ORDERED: DEXTROSE 5%-WATER - 50 ML IVPB ONE ×2 (15:04→21:15)
[2020-04-10] MEDS ORDERED: PIPERACILLIN/TAZOBACTAM 3.375 GM VIAL IVPB ONE ×2 (15:04→21:15)
[2020-04-10] MEDS ORDERED: ONDANSETRON 4 MG/2 ML VIAL IVPUSH PRN ×2 (15:43→17:16)
[2020-04-10] MEDS ORDERED: LACTATED RINGERS SOLUTION 1,000 ML IV SCH (15:45)
--- NOTE | 2020-04-10 15:53 | PN ---
Physical Exam: SUBJECTIVE: Patient seen and examined bedside in the ED. Patient in no acute distress. Pain is controlled, she hasn't experienced any vomiting since starting Zofran. Surgery consulted and patient will be going to OR later this afternoon. OBJECTIVE: Vital Signs Vital Signs - 24 hr 04/09/20 04/10/20 16:30 01:40 Temperature 98.4 F 98.8 F Pulse Rate 101 H Pulse Rate [ 79 Left Radial] Respiratory 20 15 Rate Blood Pressure 136/85 Blood Pressure 118/67 [Right Arm] O2 Sat by Pulse 100 100 Oximetry (%) 04/10/20 14:43 Temperature 98.5 F Pulse Rate 78 Pulse Rate [ Left Radial] Respiratory 18 Rate Blood Pressure 127/71 Blood Pressure [Right Arm] O2 Sat by Pulse Oximetry (%) GENERAL: Awake, alert and oriented, in no acute distress. HEAD: Normal with no signs of trauma. LUNGS: Breath sounds equal, clear to auscultation bilaterally. No wheezes, and no crackles. HEART: Regular rate and rhythm, normal S1 and S2 without murmur, rub or gallop. ABDOMEN: Increased Bowel sounds, tender to palpation in all 4 quadrants, tender McBerney's point, positive rovsing sign, negative obturator sign Laboratory Last Values WBC 9.8 K/mm3 (4.0-10.0) 04/10/20 05:15 RBC 4.02 M/mm3 (3.60-5.2) 04/10/20 05:15 Hgb 10.9 GM/dL (10.7-15.3) 04/10/20 05:15 Hct 32.9 % (32.4-45.2) 04/10/20 05:15 MCV 81.8 fl (80-96) 04/10/20 05:15 MCH 27.0 pg (25.7-33.7) 04/10/20 05:15 MCHC 33.0 g/dl (32.0-36.0) 04/10/20 05:15 RDW 14.3 % (11.6-15.6) 04/10/20 05:15 Plt Count 224 K/MM3 (134-434) 04/10/20 05:15 MPV 8.3 fl (7.5-11.1) 04/10/20 05:15 Absolute Neuts (auto) 8.4 K/mm3 (1.5-8.0) H 04/10/20 05:15 Neutrophils % 86.2 % (42.8-82.8) H 04/10/20 05:15 Lymphocytes % 8.3 % (8-40) 04/10/20 05:15 Monocytes % 3.5 % (3.8-10.2) L 04/10/20 05:15 Eosinophils % 1.8 % (0-4.5) 04/10/20 05:15 Basophils % 0.2 % (0-2.0) 04/10/20 05:15 Nucleated RBC % 0 % (0-0) 04/10/20 05:15 PT with INR 14.20 SEC (9.7-13.0) H 04/10/20 05:15 INR 1.20 (0.83-1.09) H 04/10/20 05:15 PTT (Actin FS) 36.8 SECONDS (25.2-36.5) H 04/09/20 17:15 Sodium 136 mmol/L (136-145) 04/10/20 05:15 Potassium 3.6 mmol/L (3.5-5.1) 04/10/20 05:15 Chloride 104 mmol/L (98-107) 04/10/20 05:15 Carbon Dioxide 25 mmol/L (21-32) 04/10/20 05:15 Anion Gap 7 MMOL/L (8-16) L 04/10/20 05:15 BUN 5.8 mg/dL (7-18) L 04/10/20 05:15 Creatinine 0.8 mg/dL (0.55-1.3) 04/10/20 05:15 Est GFR (CKD-EPI)AfAm 108.39 04/10/20 05:15 Est GFR (CKD-EPI)NonAf 93.52 04/10/20 05:15 Random Glucose 144 mg/dL (74-106) H 04/10/20 05:15 Lactic Acid 0.7 mmol/L (0.4-2.0) 04/09/20 17:15 Calcium 8.9 mg/dL (8.5-10.1) 04/10/20 05:15 Phosphorus 3.3 mg/dL (2.5-4.9) 04/10/20 05:15 Magnesium 2.2 mg/dL (1.8-2.4) 04/10/20 05:15 Total Bilirubin 1.0 mg/dL (0.2-1) 04/10/20 05:15 AST 12 U/L (15-37) L 04/10/20 05:15 ALT 12 U/L (13-61) L 04/10/20 05:15 Alkaline Phosphatase 76 U/L (45-117) 04/10/20 05:15 Total Protein 6.6 g/dl (6.4-8.2) 04/10/20 05:15 Albumin 3.4 g/dl (3.4-5.0) 04/10/20 05:15 Lipase 85 U/L (73-393) 04/09/20 17:15 Beta HCG, Quant < 1.0 mIU/ml 04/09/20 17:15 Serum , Qual Negative 04/09/20 17:15 Urine Color Yellow 04/10/20 07:18 Urine Appearance Clear 04/10/20 07:18 Urine pH 7.0 (5.0-8.0) D 04/10/20 07:18 Ur Specific [place] 1.013 (1.010-1.035) 04/10/20 07:18 Urine Protein Negative (NEGATIVE) 04/10/20 07:18 Urine Glucose (UA) 2+ (NEGATIVE) H 04/10/20 07:18 Urine Ketones Negative (NEGATIVE) 04/10/20 07:18 Urine Blood 1+ (NEGATIVE) H 04/10/20 07:18 Urine Nitrite Negative (NEGATIVE) 04/10/20 07:18 Urine Bilirubin Negative (NEGATIVE) 04/10/20 07:18 Urine Urobilinogen 1.0 mg/dL (0.2-1.0) 04/10/20 07:18 Ur Leukocyte Esterase Negative (NEGATIVE) 04/10/20 07:18 Urine WBC (Auto) 5 /uL (0-25.8) 04/10/20 07:18 Urine RBC (Auto) 26 /uL (0-23.9) 04/10/20 07:18 Urine Casts (Auto) 0 /uL (0-3.1) 04/10/20 07:18 U Epithel Cells (Auto) 16 /uL (0-25.1) 04/10/20 07:18 Urine Bacteria (Auto) 134 /uL (0-1359) 04/10/20 07:18 Blood Type A POSITIVE 04/09/20 17:15 Antibody Screen Negative 04/09/20 17:15 Active Medications Generic Name Dose Route Start Last Admin Trade Name Freq PRN Reason Stop Dose Admin Dextrose/Sodium Chloride 1,000 mls @ 100 mls/hr 04/10/20 03:30 04/10/20 04:22 D5-Ns - IV 100 mls/hr ASDIR MERI Administration Piperacillin Sod/Tazobactam 50 mls @ 100 mls/hr 04/10/20 07:00 Sod 3.375 gm/ Dextrose IVPB 04/10/20 19:29 Q6H MERI Protocol Piperacillin Sod/Tazobactam 50 mls @ 100 mls/hr 04/10/20 07:00 04/10/20 15:06 Sod 3.375 gm/ Dextrose IVPB 04/11/20 03:29 100 mls/hr Q6H-IV MERI Administration Protocol Morphine Sulfate 1 mg 04/10/20 03:29 04/10/20 10:04 Morphine Sulfate IVPUSH 1 mg Q4H PRN Administration PAIN LEVEL 7 - 10 ASSESSMENT/PLAN: This is a 39 years old female with no significant PMH, presented with 3 days of suprapubic abdominal pain, admitted for management of suspected appendicitis Appendicitis - WBC 13.8 with % yudy 88.4 - CT showed inflammatory changes in RLQ consistent with appendicitis w/o abscesses - Zosyn 3.375gm IV started in ED - continue - Surgery consulted, patient going OR for lap appy this afternoon (Dr. Pemberton) - Patient to remain NPO - Morphine PRN - Fluids: D5 NS for calorie maintenance - Microscopic Hematuria - 3+ blood on UA on admission, in AM +1 blood and - Repeat UA +1 & +2 glucose: continue to monitor Diarrhea - 1D of Diarrhea - Hx of recent amoxicillin use for 7days - Stool culture for C.Diff - Monitor for more episodes of Diarrhea #DVT Prophylaxis: SCD Bilateral # Dispo: admitted to Med-Surge Visit type - Emergency Visit Emergency Visit: Yes ED Registration Date: 04/10/20 Care time: The patient presented to the Emergency Department on the above date and was hospitalized for further evaluation of their emergent condition. - New Patient This patient is new to me today: Yes Date on this admission: 04/19/20 - Critical Care Critical Care patient: No - Discharge Referral Referred to [facility] Med P.C.: Yes ATTENDING PHYSICIAN STATEMENT I saw and evaluated the patient. I reviewed the resident's note and discussed the case with the resident. I agree with the resident's findings and plan as documented. SUBJECTIVE: OBJECTIVE: ASSESSMENT AND PLAN:
[2020-04-10] MEDS ORDERED: fentaNYL CITRATE 250 MCG/5 ML VIAL ONE (16:00)
[2020-04-10] MEDS ORDERED: ROCURONIUM BROMIDE 50 MG/5 ML SYRINGE ONE (16:00)
[2020-04-10] MEDS ORDERED: MIDAZOLAM HCL 2 MG/2 ML SINGLE DOSE VIAL ONE (16:00)
[2020-04-10] MEDS ORDERED: ceFAZolin 2 GRAM PREMIX BAG IVPB ONE (16:15)
--- NOTE | 2020-04-10 16:15 | OP ---
Operative Note - Note: Operative Date: 04/10/20 Pre-Operative Diagnosis: acute appendicittis Operation: laparoscopic appendectomy Findings: perforated appendix with walled off abcess in the right pelvis acute appendicitis Post-Operative Diagnosis: Same as Pre-op (perforated appendicitis with pelvic abcess) Surgeon: Juan Santoyo Anesthesia: General Specimens Removed: Appendix Estimated Blood Loss (mls): 10 Drains & Tubes with Location: [place] Operative Report Dictated: Yes
[2020-04-10] MEDS ORDERED: LIDOCAINE HCL/PF 2% SDV 5ML VIAL ONE (16:19)
[2020-04-10] MEDS ORDERED: KETOROLAC TROMETHAMINE 30 MG/1 ML VIAL ONE (16:19)
[2020-04-10] MEDS ORDERED: ceFAZolin SODIUM 1 GM VIAL ONE (16:19)
[2020-04-10] MEDS ORDERED: DEXAMETHASONE SOD PHOSPHATE 4 MG/1 ML VIAL ONE (16:19)
[2020-04-10] MEDS ORDERED: LIDOCAINE HCL 2% JELLY (5 ML/TUBE) ONE (16:19)
[2020-04-10] MEDS ORDERED: BUPIVACAINE HCL 0.25% 125 MG/50 ML VIAL NR ONE (16:23)
[2020-04-10] MEDS ORDERED: NEOSTIGMINE METHYLSULFATE 0.5 MG/ML - 10 ML MDV ONE (16:41)
[2020-04-10] MEDS ORDERED: ACETAMINOPHEN 1000 MG/100 ML VIAL (NON FORMULARY) IVPB PRN (16:59)
[2020-04-10] MEDS: LACTATED RINGERS SOLUTION 1,000 ML IV SCH (18:00)
[2020-04-10] MEDS: ACETAMINOPHEN 1000 MG/100 ML VIAL (NON FORMULARY) IVPB PRN (20:28)
[2020-04-10] MEDS: KETOROLAC TROMETHAMINE 30 MG/1 ML VIAL IVPUSH PRN (21:42)
[2020-04-11] MEDS ORDERED: PIPERACILLIN/TAZOBACTAM 3.375 GM VIAL IVPB ONE ×3 (00:48→18:08)
[2020-04-11] MEDS ORDERED: DEXTROSE 5%-WATER - 50 ML IVPB ONE ×3 (00:48→18:08)
[2020-04-11] MEDS: PIPERACILLIN/TAZOB 3.375 GM 3.375 GM in DEXTROSE 5%-WATER - 50 ML IVPB SCH ×2 (02:21→18:24)
[2020-04-11] MEDS: KETOROLAC TROMETHAMINE 30 MG/1 ML VIAL IVPUSH PRN ×3 (04:39→22:35)
--- NOTE | 2020-04-11 09:45 | PN ---
Progress Note (short form) - Note Progress Note: Surgery note: Pt without complaints of nausea or emesis. Tolerated clears. No flatus or BM. Vital Signs Period Temp Pulse Resp BP Sys/Vences Pulse Ox Last 24 Hr 97.5 F-99.3 F 55-88 16-20 104-131/53-79 97-100 [place]: 30ML-sangrenous GEN: A&0x3, NAD ABD: soft, non-distended, inc tenderness. Inc c/d/i. LE: no calf tenderness/swelling b/l. SCDs in place. CBC, BMP 04/10/20 05:15 04/10/20 05:15 A/p: 39 yo female s/p lap appy-finding perforated appendicitis/acute appy with abscess, POD#1 D/w Dr. Gonzalez and may advance diet, adv to fulls today OOB/ambulate/Heparin SQ for DVT ppx Incentive spirometer IV abx x 24 hours...last dose of Zosyn yesterday at 2am..ID consult for continuation IV abx
[2020-04-11] MEDS: ACETAMINOPHEN 1000 MG/100 ML VIAL (NON FORMULARY) IVPB PRN (09:46)
[2020-04-11] MEDS: LACTATED RINGERS SOLUTION 1,000 ML IV SCH ×2 (09:48→18:24)
[2020-04-11 09:54] LABS: HEMATOCRIT 30.9 % (32.4-45.2); MCH 26.4 pg (25.7-33.7); MCHC 32.5 g/dl (32.0-36.0); MEAN CELL VOLUME 81.4 fl (80-96); MEAN PLT VOLUME 8.4 fl (7.5-11.1); PLATELET COUNT 244 K/MM3 (134-434); RBC 3.79 M/mm3 (3.60-5.2); RDW 14.4 % (11.6-15.6); WHITE BLOOD COUNT 9.4 K/mm3 (4.0-10.0)
[2020-04-11 10:15] LABS: BLOOD UREA NITROGEN 3.8 mg/dL (7-18); CALCIUM 8.5 mg/dL (8.5-10.1); CREATININE 0.6 mg/dL (0.55-1.3)
[2020-04-11] MEDS ORDERED: PIPERACILLIN/TAZOB 3.375 GM 3.375 GM in DEXTROSE 5%-WATER - 50 ML IVPB ONE (10:30)
[2020-04-11] MEDS: HEPARIN NA (PORCINE) 5,000 UNITS/ML 1ML VIAL SQ SCH ×3 (11:25→22:45)
--- NOTE | 2020-04-11 15:53 | PN ---
Physical Exam: SUBJECTIVE: Patient seen and examined bedside. In no acute distress. Patient hasn't passed gas yet but feels gassy. OBJECTIVE: Vital Signs Last Vital Signs Temp Pulse Resp BP Pulse Ox 97.6 F 74 20 136/75 97 04/11/20 14:00 04/11/20 14:00 04/11/20 14:00 04/11/20 14:00 04/10/20 21:00 GENERAL: The patient is awake, alert, and fully oriented, in no acute distress. LUNGS: Breath sounds equal, clear to auscultation bilaterally, no wheezes, no crackles, no accessory muscle use. HEART: Regular rate and rhythm, S1, S2 without murmur, rub or gallop. ABDOMEN: Soft, nondistended, slightly tender to palpation in both lower quadrants. Drain placed on LLQ EXTREMITIES: 2+ pulses, warm, well-perfused, no edema. Laboratory Results - last 24 hr 04/11/20 04/11/20 09:18 09:18 WBC 9.4 RBC 3.79 Hgb 10.0 L Hct 30.9 L MCV 81.4 MCH 26.4 MCHC 32.5 RDW 14.4 Plt Count 244 MPV 8.4 Sodium 136 Potassium 4.0 Chloride 107 Carbon Dioxide 24 Anion Gap 5 L BUN 3.8 L Creatinine 0.6 Est GFR (CKD-EPI)AfAm 134.01 Est GFR (CKD-EPI)NonAf 115.63 Random Glucose 129 H Calcium 8.5 Active Medications Generic Name Dose Route Start Last Admin Trade Name Freq PRN Reason Stop Dose Admin Acetaminophen 1,000 mg 04/10/20 20:08 04/11/20 09:46 Ofirmev Injection - IVPB 04/11/20 20:07 1,000 mg Q6H PRN Administration PAIN SCALE 1-5 Heparin Sodium (Porcine) 5,000 unit 04/11/20 10:15 04/11/20 11:48 Heparin - SQ Not Given BID MERI Lactated Ringer's 1,000 mls @ 125 mls/hr 04/10/20 17:16 04/11/20 09:48 Lactated Ringers Solution IV 125 mls/hr ASDIR MERI Administration Piperacillin Sod/Tazobactam 50 mls @ 100 mls/hr 04/11/20 18:00 Sod 3.375 gm/ Dextrose IVPB Q8H-IV MERI Protocol Ketorolac Tromethamine 30 mg 04/10/20 17:00 04/11/20 13:16 Toradol Injection - IVPUSH 04/15/20 16:59 30 mg Q6H PRN Administration PAIN LEVEL 6-10 Ondansetron HCl 4 mg 04/10/20 17:16 Zofran Injection IVPUSH Q6H PRN NAUSEA AND/OR VOMITING ASSESSMENT/PLAN: This is a 39 years old female with no significant PMH, presented with 3 days of suprapubic abdominal pain, admitted for management of suspected appendicitis Appendicitis - WBC 13.8 with % yudy 88.4 on admission >> trending down - CT showed inflammatory changes in RLQ consistent with appendicitis w/o abscesses - Zosyn 3.375gm IV started in ED - Day 2 - Lap appy performed by Dr. Santoyo on 04/10 perforated appendix with walled off abscess in the right pelvis. Drain was placed with total output of 115 ML to date Surgery will reassess drain tomorrow Patient to advance to full liquids today - toradol 30 mg IV q6hr PRN for pain Microscopic Hematuria - 3+ blood on UA on admission, in AM +1 blood and - Repeat UA +1 & +2 glucose: continue to monitor Diarrhea - Stool culture for C.Diff sent FEN - Fluids: D5 NS for calorie maintenance - advance to full liquid diet DVT Prophylaxis: SCD Bilateral sub q heprain 5000 BID Dispo: Continue to monitor on med-surg Visit type - Emergency Visit Emergency Visit: Yes ED Registration Date: 04/10/20 Care time: The patient presented to the Emergency Department on the above date and was hospitalized for further evaluation of their emergent condition. - New Patient This patient is new to me today: Yes Date on this admission: 04/19/20 - Critical Care Critical Care patient: No - Discharge Referral Referred to [facility] Med P.C.: Yes ATTENDING PHYSICIAN STATEMENT I saw and evaluated the patient. I reviewed the resident's note and discussed the case with the resident. I agree with the resident's findings and plan as documented. SUBJECTIVE: OBJECTIVE: ASSESSMENT AND PLAN:
--- NOTE | 2020-04-11 18:25 | PN ---
Teaching Attending Note Name of Resident: Kristie Franco ATTENDING PHYSICIAN STATEMENT I saw and evaluated the patient. I reviewed the resident's note and discussed the case with the resident. I agree with the resident's findings and plan as documented. SUBJECTIVE: Patient is comfortable with no acute distress. Pain is less OBJECTIVE: Vital Signs Temperature 97.6 F 04/11/20 14:00 Pulse Rate 74 04/11/20 14:00 Respiratory Rate 20 04/11/20 14:00 Blood Pressure 136/75 04/11/20 14:00 O2 Sat by Pulse Oximetry (%) 97 04/11/20 09:00 PE: per resident's note lap-appendectomy , positive for drainage CBCD WBC 9.4 K/mm3 (4.0-10.0) 04/11/20 09:18 RBC 3.79 M/mm3 (3.60-5.2) 04/11/20 09:18 Hgb 10.0 GM/dL (10.7-15.3) L 04/11/20 09:18 Hct 30.9 % (32.4-45.2) L 04/11/20 09:18 MCV 81.4 fl (80-96) 04/11/20 09:18 MCHC 32.5 g/dl (32.0-36.0) 04/11/20 09:18 RDW 14.4 % (11.6-15.6) 04/11/20 09:18 Plt Count 244 K/MM3 (134-434) 04/11/20 09:18 MPV 8.4 fl (7.5-11.1) 04/11/20 09:18 CMP Sodium 136 mmol/L (136-145) 04/11/20 09:18 Potassium 4.0 mmol/L (3.5-5.1) 04/11/20 09:18 Chloride 107 mmol/L (98-107) 04/11/20 09:18 Carbon Dioxide 24 mmol/L (21-32) 04/11/20 09:18 Anion Gap 5 MMOL/L (8-16) L 04/11/20 09:18 BUN 3.8 mg/dL (7-18) L 04/11/20 09:18 Creatinine 0.6 mg/dL (0.55-1.3) 04/11/20 09:18 Random Glucose 129 mg/dL (74-106) H 04/11/20 09:18 Calcium 8.5 mg/dL (8.5-10.1) 04/11/20 09:18 Total Bilirubin 1.0 mg/dL (0.2-1) 04/10/20 05:15 AST 12 U/L (15-37) L 04/10/20 05:15 ALT 12 U/L (13-61) L 04/10/20 05:15 Alkaline Phosphatase 76 U/L (45-117) 04/10/20 05:15 Total Protein 6.6 g/dl (6.4-8.2) 04/10/20 05:15 Albumin 3.4 g/dl (3.4-5.0) 04/10/20 05:15 Current Medications Generic Name Dose Route Start Last Admin Trade Name Freq PRN Reason Stop Dose Admin Acetaminophen 1,000 mg 04/10/20 20:08 04/11/20 09:46 Ofirmev Injection - IVPB 04/11/20 20:07 1,000 mg Q6H PRN Administration PAIN SCALE 1-5 Heparin Sodium (Porcine) 5,000 unit 04/11/20 10:15 04/11/20 11:48 Heparin - SQ Not Given BID MERI Lactated Ringer's 1,000 mls @ 125 mls/hr 04/10/20 17:16 04/11/20 18:24 Lactated Ringers Solution IV 125 mls/hr ASDIR MERI Administration Piperacillin Sod/Tazobactam 50 mls @ 100 mls/hr 04/11/20 18:00 04/11/20 18:24 Sod 3.375 gm/ Dextrose IVPB 100 mls/hr Q8H-IV MERI Administration Protocol Ketorolac Tromethamine 30 mg 04/10/20 17:00 04/11/20 13:16 Toradol Injection - IVPUSH 04/15/20 16:59 30 mg Q6H PRN Administration PAIN LEVEL 6-10 Ondansetron HCl 4 mg 04/10/20 17:16 Zofran Injection IVPUSH Q6H PRN NAUSEA AND/OR VOMITING Home Medications Medication Instructions Recorded Medroxyprogesterone Acetate 1 vial MONTHLY 04/10/20 [Depo-Provera -] Microbiology 04/10/20 07:18 Urine - Urine Clean Catch Urine Culture - Final NO GROWTH OBTAINED CT with contrast shows acute appendicitis ASSESSMENT AND PLAN: This patient is a 39yof with no significant PMHx, who presented with Suprapubic pain for 3 days. The abdominal pain is associated with nausea and an episode of Diarrhea. Her LMP was on February 04 2020, patient is currently on Depo-Provera injections every 3 months. Patient was admitted last night 04/09/2020, for acute apendicitis; presented with WBC of 13.6. # POD#1 s/p lap appendectomy for perforated appendix with walled off abscess in the right pelvis as per surgeon. continue IV Zosyn, ID on the case, surgeon on the case. IVF, pain control, clears for now continue IV antibiotic # Covid pending DVT px: SCds, heparin sq post surgery
--- NOTE | 2020-04-12 | PN ---
Progress Note (short form) - Note Progress Note: ID CONSULT DICTATED ACUTE APPENDICITIS WITH PERFORATION AND WALLED OFF ABSCESS AWAIT C/S CONTINUE EMPIRIC ZOSYN
[2020-04-12] MEDS ORDERED: PIPERACILLIN/TAZOBACTAM 3.375 GM VIAL IVPB ONE ×3 (01:11→18:00)
[2020-04-12] MEDS ORDERED: DEXTROSE 5%-WATER - 50 ML IVPB ONE ×3 (01:11→18:00)
[2020-04-12] MEDS: PIPERACILLIN/TAZOB 3.375 GM 3.375 GM in DEXTROSE 5%-WATER - 50 ML IVPB SCH ×3 (01:47→18:33)
[2020-04-12] MEDS: LACTATED RINGERS SOLUTION 1,000 ML IV SCH ×2 (03:27→18:33)
[2020-04-12 08:34] LABS: BASO % 0.4 % (0-2.0); EOS % 2.9 % (0-4.5); HEMATOCRIT 28.3 % (32.4-45.2); HEMOGLOBIN 9.3 GM/dL (10.7-15.3); MCH 26.8 pg (25.7-33.7); MCHC 32.8 g/dl (32.0-36.0); MEAN CELL VOLUME 81.7 fl (80-96); MEAN PLT VOLUME 8.3 fl (7.5-11.1); MONO % 6.3 % (3.8-10.2); NEUT % 67.4 % (42.8-82.8); PLATELET COUNT 225 K/MM3 (134-434); RBC 3.46 M/mm3 (3.60-5.2); RDW 14.7 % (11.6-15.6); WHITE BLOOD COUNT 5.8 K/mm3 (4.0-10.0)
[2020-04-12 08:43] LABS: INR 1.12 (0.83-1.09); PROTHROMBIN TIME (PATIENT) 13.2 SEC (9.7-13.0)
[2020-04-12 09:03] LABS: BLOOD UREA NITROGEN 4.3 mg/dL (7-18); CALCIUM 8.2 mg/dL (8.5-10.1); CREATININE 0.8 mg/dL (0.55-1.3); MAGNESIUM 2.1 mg/dL (1.8-2.4); PHOSPHOROUS 2.9 mg/dL (2.5-4.9); POTASSIUM 4.1 mmol/L (3.5-5.1)
[2020-04-12] MEDS: HEPARIN NA (PORCINE) 5,000 UNITS/ML 1ML VIAL SQ SCH ×2 (09:25→21:54)
[2020-04-12] MEDS: KETOROLAC TROMETHAMINE 30 MG/1 ML VIAL IVPUSH PRN ×2 (09:49→20:20)
--- NOTE | 2020-04-12 12:44 | PN ---
Progress Note (short form) - Note Progress Note: Patient is comfortable, tolerating diet, family member at bedside Vital Signs Temperature 98.7 F 04/12/20 09:31 Pulse Rate 64 04/12/20 09:31 Respiratory Rate 18 04/12/20 09:31 Blood Pressure 113/69 04/12/20 09:31 O2 Sat by Pulse Oximetry (%) 97 04/11/20 21:00 GENERAL: The patient is awake, alert, and fully oriented, in no acute distress. HEAD: Normal with no signs of trauma. EYES: PERRL, extraocular movements intact, sclera anicteric, conjunctiva clear. ENT: Ears normal, oropharynx clear without exudates, moist mucous membranes. NECK: Trachea midline, full range of motion, supple. LUNGS: Breath sounds equal, clear to auscultation bilaterally, no wheezes, no crackles, no accessory muscle use. HEART: Regular rate and rhythm, S1, S2 without murmur, rub or gallop. ABDOMEN: Soft, positive for lap appendectomy incisions, positive for drainage, draining. EXTREMITIES: 2+ pulses, warm, well-perfused, no edema. NEUROLOGICAL: Cranial nerves II through XII grossly intact. Normal speech, gait not observed. PSYCH: Normal mood, normal affect. SKIN: Warm, dry, normal turgor, no rashes or lesions noted CBCD WBC 5.8 K/mm3 (4.0-10.0) 04/12/20 07:48 RBC 3.46 M/mm3 (3.60-5.2) L 04/12/20 07:48 Hgb 9.3 GM/dL (10.7-15.3) L 04/12/20 07:48 Hct 28.3 % (32.4-45.2) L 04/12/20 07:48 MCV 81.7 fl (80-96) 04/12/20 07:48 MCHC 32.8 g/dl (32.0-36.0) 04/12/20 07:48 RDW 14.7 % (11.6-15.6) 04/12/20 07:48 Plt Count 225 K/MM3 (134-434) 04/12/20 07:48 MPV 8.3 fl (7.5-11.1) 04/12/20 07:48 CMP Sodium 141 mmol/L (136-145) 04/12/20 07:48 Potassium 4.1 mmol/L (3.5-5.1) 04/12/20 07:48 Chloride 110 mmol/L (98-107) H 04/12/20 07:48 Carbon Dioxide 27 mmol/L (21-32) 04/12/20 07:48 Anion Gap 4 MMOL/L (8-16) L 04/12/20 07:48 BUN 4.3 mg/dL (7-18) L 04/12/20 07:48 Creatinine 0.8 mg/dL (0.55-1.3) 04/12/20 07:48 Random Glucose 89 mg/dL (74-106) 04/12/20 07:48 Calcium 8.2 mg/dL (8.5-10.1) L 04/12/20 07:48 Total Bilirubin 1.0 mg/dL (0.2-1) 04/10/20 05:15 AST 12 U/L (15-37) L 04/10/20 05:15 ALT 12 U/L (13-61) L 04/10/20 05:15 Alkaline Phosphatase 76 U/L (45-117) 04/10/20 05:15 Total Protein 6.6 g/dl (6.4-8.2) 04/10/20 05:15 Albumin 3.4 g/dl (3.4-5.0) 04/10/20 05:15 Current Medications Generic Name Dose Route Start Last Admin Trade Name Freq PRN Reason Stop Dose Admin Heparin Sodium (Porcine) 5,000 unit 04/11/20 10:15 04/12/20 09:25 Heparin - SQ Not Given BID MERI Lactated Ringer's 1,000 mls @ 125 mls/hr 04/10/20 17:16 04/12/20 03:27 Lactated Ringers Solution IV 125 mls/hr ASDIR MERI Administration Piperacillin Sod/Tazobactam 50 mls @ 100 mls/hr 04/11/20 18:00 04/12/20 09:25 Sod 3.375 gm/ Dextrose IVPB 100 mls/hr Q8H-IV MERI Administration Protocol Ketorolac Tromethamine 30 mg 04/10/20 17:00 04/12/20 09:49 Toradol Injection - IVPUSH 04/15/20 16:59 30 mg Q6H PRN Administration PAIN LEVEL 6-10 Ondansetron HCl 4 mg 04/10/20 17:16 Zofran Injection IVPUSH Q6H PRN NAUSEA AND/OR VOMITING Home Medications Medication Instructions Recorded Medroxyprogesterone Acetate 1 vial MONTHLY 04/10/20 [Depo-Provera -] Microbiology 04/11/20 12:17 Blood - Peripheral Venous Blood Culture - Preliminary NO GROWTH OBTAINED AFTER 24 HOURS, INCUBATION TO CONTINUE FOR 4 DAYS. 04/11/20 12:21 Blood - Peripheral Venous Blood Culture - Preliminary NO GROWTH OBTAINED AFTER 24 HOURS, INCUBATION TO CONTINUE FOR 4 DAYS. 04/10/20 07:18 Urine - Urine Clean Catch Urine Culture - Final NO GROWTH OBTAINED CT with contrast shows acute appendicitis ASSESSMENT AND PLAN: This patient is a 39yof with no significant PMHx, who presented with Suprapubic pain for 3 days. The abdominal pain is associated with nausea and an episode of Diarrhea. Her LMP was on February 04 2020, patient is currently on Depo-Provera injections every 3 months. Patient was admitted last night 04/09/2020, for acute apendicitis; presented with WBC of 13.6. # POD#2 s/p lap appendectomy for perforated appendix with walled off abscess in the right pelvis as per surgeon. continue IV Zosyn, ID on the case, surgeon on the case. IVF, pain control, clears for now continue IV antibiotic # Covid pending DVT px: SCds, heparin sq post surgery Visit type - Emergency Visit Emergency Visit: Yes ED Registration Date: 04/10/20 Care time: The patient presented to the Emergency Department on the above date and was hospitalized for further evaluation of their emergent condition. - New Patient This patient is new to me today: No - Critical Care Critical Care patient: No - Discharge Referral Referred to [facility] Med P.C.: No
--- NOTE | 2020-04-12 14:23 | CONS ---
DATE OF CONSULTATION: DATE OF DICTATION: 04/12/2020 INFECTIOUS DISEASE CONSULTATION HISTORY OF PRESENT ILLNESS: The patient is a 39-year-old female who was admitted to the hospital on April 10, 2020, with a 3-day history of suprapubic abdominal pain. A CAT scan was performed and revealed inflammatory changes in the right lower quadrant. She was taken to the operating room on April 10, 2020. She was found to have an acute appendicitis with perforation and walled-off abscess. She was empirically treated with Zosyn. At the present time she is awake and alert. She is postop day #1. She denies any severe abdominal pain. No nausea, vomiting. She is tolerating a diet. She has not yet moved her bowels. PAST MEDICAL HISTORY: Negative. ALLERGIES: No known allergies. LABORATORIES: White count 9.4, hematocrit 30.9, platelets 244. Creatinine 0.6. Urinalysis: Five white cells. PHYSICAL EXAMINATION: General: She is awake and alert. She is not acutely toxic appearing. Vital Signs: Temperature 98.2, blood pressure 136/75, pulse 74, regular, respirations 20 per minute. HEENT: Sclerae are anicteric. Cardiac: Heart sounds S1-S2. Lungs: Clear. Abdomen: Soft. There is mild incisional tenderness. There is a Viktor-Sargent drain in place, left lower quadrant, with serosanguineous drainage. Extremities: Negative for edema. IMPRESSION: 1. Postop day #1, laparoscopic appendectomy. 2. Perforated appendix with wall-offed abscess. RECOMMENDATIONS: Await cultures. Continue empiric antibiotic coverage with Zosyn. Thank you for the kind referral. FRIDA BREEN M.D. [id number]
[2020-04-12] MEDS ORDERED: PT OWN MED DRAWER 7, Y5N ONE (19:09)
[2020-04-13] MEDS ORDERED: PIPERACILLIN/TAZOBACTAM 3.375 GM VIAL IVPB ONE ×3 (02:15→18:10)
[2020-04-13] MEDS ORDERED: DEXTROSE 5%-WATER - 50 ML IVPB ONE ×3 (02:15→18:10)
[2020-04-13] MEDS: PIPERACILLIN/TAZOB 3.375 GM 3.375 GM in DEXTROSE 5%-WATER - 50 ML IVPB SCH ×3 (02:17→18:24)
[2020-04-13] MEDS: ACETAMINOPHEN 500 MG TABLET (FP) PO PRN (06:16)
[2020-04-13] MEDS: HEPARIN NA (PORCINE) 5,000 UNITS/ML 1ML VIAL SQ SCH ×2 (09:11→21:06)
--- NOTE | 2020-04-13 18:19 | PN ---
Teaching Attending Note Name of Resident: Ricardo Simmons ATTENDING PHYSICIAN STATEMENT I saw and evaluated the patient. I reviewed the resident's note and discussed the case with the resident. I agree with the resident's findings and plan as documented. SUBJECTIVE: Patient is feeling better no overnight events. OBJECTIVE: Vital Signs Temperature 99 F 04/13/20 17:43 Pulse Rate 70 04/13/20 17:43 Respiratory Rate 20 04/13/20 17:43 Blood Pressure 122/76 04/13/20 17:43 O2 Sat by Pulse Oximetry (%) 99 04/13/20 09:00 PE: per resident's note positive for J-P drainage CBCD WBC 5.8 K/mm3 (4.0-10.0) 04/12/20 07:48 RBC 3.46 M/mm3 (3.60-5.2) L 04/12/20 07:48 Hgb 9.3 GM/dL (10.7-15.3) L 04/12/20 07:48 Hct 28.3 % (32.4-45.2) L 04/12/20 07:48 MCV 81.7 fl (80-96) 04/12/20 07:48 MCHC 32.8 g/dl (32.0-36.0) 04/12/20 07:48 RDW 14.7 % (11.6-15.6) 04/12/20 07:48 Plt Count 225 K/MM3 (134-434) 04/12/20 07:48 MPV 8.3 fl (7.5-11.1) 04/12/20 07:48 CMP Sodium 141 mmol/L (136-145) 04/12/20 07:48 Potassium 4.1 mmol/L (3.5-5.1) 04/12/20 07:48 Chloride 110 mmol/L (98-107) H 04/12/20 07:48 Carbon Dioxide 27 mmol/L (21-32) 04/12/20 07:48 Anion Gap 4 MMOL/L (8-16) L 04/12/20 07:48 BUN 4.3 mg/dL (7-18) L 04/12/20 07:48 Creatinine 0.8 mg/dL (0.55-1.3) 04/12/20 07:48 Random Glucose 89 mg/dL (74-106) 04/12/20 07:48 Calcium 8.2 mg/dL (8.5-10.1) L 04/12/20 07:48 Total Bilirubin 1.0 mg/dL (0.2-1) 04/10/20 05:15 AST 12 U/L (15-37) L 04/10/20 05:15 ALT 12 U/L (13-61) L 04/10/20 05:15 Alkaline Phosphatase 76 U/L (45-117) 04/10/20 05:15 Total Protein 6.6 g/dl (6.4-8.2) 04/10/20 05:15 Albumin 3.4 g/dl (3.4-5.0) 04/10/20 05:15 Current Medications Generic Name Dose Route Start Last Admin Trade Name Freq PRN Reason Stop Dose Admin Acetaminophen 1,000 mg 04/13/20 05:53 04/13/20 06:16 Tylenol - PO 1,000 mg Q6H PRN Administration PAIN LEVEL 6-10 Heparin Sodium (Porcine) 5,000 unit 04/11/20 10:15 04/13/20 09:11 Heparin - SQ 5,000 unit BID MERI Administration Lactated Ringer's 1,000 mls @ 125 mls/hr 04/10/20 17:16 04/12/20 18:33 Lactated Ringers Solution IV Not Given ASDIR MERI Piperacillin Sod/Tazobactam 50 mls @ 100 mls/hr 04/11/20 18:00 04/13/20 09:11 Sod 3.375 gm/ Dextrose IVPB 100 mls/hr Q8H-IV MERI Administration Protocol Ketorolac Tromethamine 30 mg 04/10/20 17:00 04/12/20 20:20 Toradol Injection - IVPUSH 04/15/20 16:59 30 mg Q6H PRN Administration PAIN LEVEL 6-10 Ondansetron HCl 4 mg 04/10/20 17:16 Zofran Injection IVPUSH Q6H PRN NAUSEA AND/OR VOMITING Home Medications Medication Instructions Recorded Medroxyprogesterone Acetate 1 vial MONTHLY 04/10/20 [Depo-Provera -] Microbiology 04/11/20 12:17 Blood - Peripheral Venous Blood Culture - Preliminary NO GROWTH OBTAINED AFTER 48 HOURS, INCUBATION TO CONTINUE FOR 3 DAYS. 04/11/20 12:21 Blood - Peripheral Venous Blood Culture - Preliminary NO GROWTH OBTAINED AFTER 48 HOURS, INCUBATION TO CONTINUE FOR 3 DAYS. 04/10/20 07:18 Urine - Urine Clean Catch Urine Culture - Final NO GROWTH OBTAINED ASSESSMENT AND PLAN: This patient is a 39yof with no significant PMHx, who presented with Suprapubic pain for 3 days. The abdominal pain is associated with nausea and an episode of Diarrhea. Her LMP was on February 04 2020, patient is currently on Depo-Provera injections every 3 months. Patient was admitted last night 04/09/2020, for acute apendicitis; presented with WBC of 13.6. # POD#3 s/p lap appendectomy for perforated appendix with walled off abscess in the right pelvis as per surgeon. continue IV Zosyn, ID on the case, surgeon on the case. IVF, pain control, clears for now continue IV antibiotic, no growth so far # Covid not detected DVT px: SCds, heparin
--- NOTE | 2020-04-13 19:43 | PN ---
Physical Exam: SUBJECTIVE: Patient seen and examined NAEON Thinks abd pain is improved. Has flatus, no BM. Tolerated FLD OBJECTIVE: Vital Signs Period Temp Pulse Resp BP Sys/Vences Pulse Ox Last 24 Hr 98.5 F-99.0 F 67-76 18-20 119-122/68-76 99-99 GENERAL: NAD. Pleasant HEAD: NC/AT EYES: sclera anicteric, conjunctiva clear. NECK: Trachea midline, full range of motion, supple. LUNGS: Breath sounds equal, clear to auscultation bilaterally, no wheezes, no crackles, no accessory muscle use. HEART: Regular rate and rhythm, S1, S2 without murmur, rub or gallop. ABDOMEN: Soft, nonTTP [id number], nondistended, no guarding, no rebound. Lapascopic incision closed with surgical glue. LLQ with MANSOOR draining serous fluid. EXTREMITIES: 2+ pulses, warm, well-perfused, no edema. NEUROLOGICAL: Normal speech. Laboratory Results - last 24 hr 04/10/20 00:40 COVID-19 (ISHA) Not detected Active Medications Generic Name Dose Route Start Last Admin Trade Name Freq PRN Reason Stop Dose Admin Acetaminophen 1,000 mg 04/13/20 05:53 04/13/20 06:16 Tylenol - PO 1,000 mg Q6H PRN Administration PAIN LEVEL 6-10 Heparin Sodium (Porcine) 5,000 unit 04/11/20 10:15 04/13/20 09:11 Heparin - SQ 5,000 unit BID MERI Administration Lactated Ringer's 1,000 mls @ 125 mls/hr 04/10/20 17:16 04/12/20 18:33 Lactated Ringers Solution IV Not Given ASDIR MERI Piperacillin Sod/Tazobactam 50 mls @ 100 mls/hr 04/11/20 18:00 04/13/20 18:24 Sod 3.375 gm/ Dextrose IVPB 100 mls/hr Q8H-IV MERI Administration Protocol Ketorolac Tromethamine 30 mg 04/10/20 17:00 04/12/20 20:20 Toradol Injection - IVPUSH 04/15/20 16:59 30 mg Q6H PRN Administration PAIN LEVEL 6-10 Ondansetron HCl 4 mg 04/10/20 17:16 Zofran Injection IVPUSH Q6H PRN NAUSEA AND/OR VOMITING ASSESSMENT/PLAN: 39F with no significant PMH, presented with 3 days of suprapubic abdominal pain, admitted for management of appendicitis. Sp Laparscopic Appendectomy(Natanael, 04/10/20). Sepsis 2/2 Appendicitis --resolved > WBC 13.8 with % yudy 88.4 on admission >> trending down > CT showed inflammatory changes in RLQ consistent with appendicitis w/o abscesses - abx regimen: Zosyn 3.375gm IV - Day 3 - sp Lap appy performed by Dr. Santoyo on 04/10 perforated appendix with walled off abscess in the right pelvis. Drain was placed with total output of 15 ML to date Surgery will reassess drain tolerating FLD - toradol 30 mg IV q6hr PRN for pain Microscopic Hematuria - 3+ blood on UA on admission, rpt was +1 blood - Repeat UA +1 & +2 glucose: continue to monitor Diarrhea - Stool culture for C.Diff sent FEN - full liquid diet - no mIVF DVT Prophylaxis: SCD Bilateral sub q heprain 5000 BID Visit type - Emergency Visit Emergency Visit: No - New Patient This patient is new to me today: Yes Date on this admission: 04/13/20 - Critical Care Critical Care patient: No ATTENDING PHYSICIAN STATEMENT I saw and evaluated the patient. I reviewed the resident's note and discussed the case with the resident. I agree with the resident's findings and plan as documented. SUBJECTIVE: OBJECTIVE: ASSESSMENT AND PLAN:
[2020-04-14] MEDS ORDERED: PIPERACILLIN/TAZOBACTAM 3.375 GM VIAL IVPB ONE ×2 (02:10→09:27)
[2020-04-14] MEDS ORDERED: DEXTROSE 5%-WATER - 50 ML IVPB ONE ×2 (02:10→09:27)
[2020-04-14] MEDS: PIPERACILLIN/TAZOB 3.375 GM 3.375 GM in DEXTROSE 5%-WATER - 50 ML IVPB SCH ×2 (02:13→09:39)
[2020-04-14 06:49] VITALS: TEMP 98.2
[2020-04-14 09:24] LABS: HEMATOCRIT 35.7 % (32.4-45.2); HEMOGLOBIN 11.6 GM/dL (10.7-15.3); MCH 26.6 pg (25.7-33.7); MCHC 32.6 g/dl (32.0-36.0); MEAN CELL VOLUME 81.5 fl (80-96); MEAN PLT VOLUME 7.9 fl (7.5-11.1); PLATELET COUNT 320 K/MM3 (134-434); RBC 4.38 M/mm3 (3.60-5.2); RDW 14.8 % (11.6-15.6); WHITE BLOOD COUNT 6.7 K/mm3 (4.0-10.0)
[2020-04-14] MEDS: ACETAMINOPHEN 500 MG TABLET (FP) PO PRN (09:39)
[2020-04-14] MEDS: HEPARIN NA (PORCINE) 5,000 UNITS/ML 1ML VIAL SQ SCH (09:39)
--- NOTE | 2020-04-14 09:51 | PN ---
Progress Note (short form) - Note Progress Note: GENERAL SURGERY POD #4 s/p Lap appendectomy (perforated w/ walled off abscess in right pelvis) No acute events as per RN notes. Patient is alert. Sitting up in bed. Just finished eating her breakfast. She is oob and ambulating unassisted. Voiding/stooling spontaneously Denies n/v/f/c, CP, palpitations, SOB or OLIVEIRA. AVSS. Afebrile. WBC 6.7 Gen: nad ABD: all surgical ports c/d/i. LLQ MANSOOR serous (minimal over past 24hrs) LE: all compartments soft. SCDs bilat. warm. Problem List - Problems (1) Appendicitis, acute Assessment/Plan: POD #4 s/p Lap appy; MANSOOR drain -MANSOOR dc'd while on rounds -Cont regular diet -Cont OOB and ambulate -ID for abx to go home on -cleared for dc from surgical service -Above plan discussed with my attending and agrees. On behalf of Dr. Santoyo, thank you for the opportunity to participate in your patient's care. Code(s): K35.80 - UNSPECIFIED ACUTE APPENDICITIS Qualifiers: Acute appendicitis type: with localized peritonitis Appendicitis perforation presence: with perforation Appendicitis abscess presence: with abscess
[2020-04-14 10:02] LABS: POTASSIUM 3.9 mmol/L (3.5-5.1)
[2020-04-14 10:17] LABS: BLOOD UREA NITROGEN 4.9 mg/dL (7-18); CALCIUM 9.1 mg/dL (8.5-10.1); CREATININE 0.8 mg/dL (0.55-1.3); MAGNESIUM 2.3 mg/dL (1.8-2.4)
--- NOTE | 2020-04-14 10:18 | PN ---
Teaching Attending Note Name of Resident: Kristie Franco ATTENDING PHYSICIAN STATEMENT I saw and evaluated the patient. I reviewed the resident's note and discussed the case with the resident. I agree with the resident's findings and plan as documented. SUBJECTIVE: Patient is comfortable, drain is pulled out. OBJECTIVE: Vital Signs Temperature 98.2 F 04/14/20 08:59 Pulse Rate 77 04/14/20 08:59 Respiratory Rate 16 04/14/20 08:59 Blood Pressure 116/73 04/14/20 08:59 O2 Sat by Pulse Oximetry (%) 97 04/13/20 21:00 PE: per resident's note +BS, drainaige is removed. CBCD WBC 6.7 K/mm3 (4.0-10.0) 04/14/20 08:50 RBC 4.38 M/mm3 (3.60-5.2) 04/14/20 08:50 Hgb 11.6 GM/dL (10.7-15.3) 04/14/20 08:50 Hct 35.7 % (32.4-45.2) D 04/14/20 08:50 MCV 81.5 fl (80-96) 04/14/20 08:50 MCHC 32.6 g/dl (32.0-36.0) 04/14/20 08:50 RDW 14.8 % (11.6-15.6) 04/14/20 08:50 Plt Count 320 K/MM3 (134-434) D 04/14/20 08:50 MPV 7.9 fl (7.5-11.1) 04/14/20 08:50 CMP Sodium 136 mmol/L (136-145) 04/14/20 08:50 Potassium 3.9 mmol/L (3.5-5.1) 04/14/20 08:50 Chloride 102 mmol/L (98-107) 04/14/20 08:50 Carbon Dioxide 24 mmol/L (21-32) 04/14/20 08:50 Anion Gap 9 MMOL/L (8-16) 04/14/20 08:50 BUN 4.9 mg/dL (7-18) L 04/14/20 08:50 Creatinine 0.8 mg/dL (0.55-1.3) 04/14/20 08:50 Random Glucose 131 mg/dL (74-106) H 04/14/20 08:50 Calcium 9.1 mg/dL (8.5-10.1) 04/14/20 08:50 Total Bilirubin 1.0 mg/dL (0.2-1) 04/10/20 05:15 AST 12 U/L (15-37) L 04/10/20 05:15 ALT 12 U/L (13-61) L 04/10/20 05:15 Alkaline Phosphatase 76 U/L (45-117) 04/10/20 05:15 Total Protein 6.6 g/dl (6.4-8.2) 04/10/20 05:15 Albumin 3.4 g/dl (3.4-5.0) 04/10/20 05:15 Current Medications Generic Name Dose Route Start Last Admin Trade Name Freq PRN Reason Stop Dose Admin Acetaminophen 1,000 mg 04/13/20 05:53 04/14/20 09:39 Tylenol - PO 1,000 mg Q6H PRN Administration PAIN LEVEL 6-10 Heparin Sodium (Porcine) 5,000 unit 04/11/20 10:15 04/14/20 09:39 Heparin - SQ Not Given BID MERI Lactated Ringer's 1,000 mls @ 125 mls/hr 04/10/20 17:16 04/12/20 18:33 Lactated Ringers Solution IV Not Given ASDIR MERI Piperacillin Sod/Tazobactam 50 mls @ 100 mls/hr 04/11/20 18:00 04/14/20 09:39 Sod 3.375 gm/ Dextrose IVPB 100 mls/hr Q8H-IV MERI Administration Protocol Ketorolac Tromethamine 30 mg 04/10/20 17:00 04/12/20 20:20 Toradol Injection - IVPUSH 04/15/20 16:59 30 mg Q6H PRN Administration PAIN LEVEL 6-10 Ondansetron HCl 4 mg 04/10/20 17:16 Zofran Injection IVPUSH Q6H PRN NAUSEA AND/OR VOMITING Home Medications Medication Instructions Recorded Medroxyprogesterone Acetate 1 vial MONTHLY 04/10/20 [Depo-Provera -] oxyCODONE HCL [Roxicodone -] 5 mg PO Q4H PRN #20 tablet MDD 6 04/14/20 Microbiology 04/11/20 12:17 Blood - Peripheral Venous Blood Culture - Preliminary NO GROWTH OBTAINED AFTER 48 HOURS, INCUBATION TO CONTINUE FOR 3 DAYS. 04/11/20 12:21 Blood - Peripheral Venous Blood Culture - Preliminary NO GROWTH OBTAINED AFTER 48 HOURS, INCUBATION TO CONTINUE FOR 3 DAYS. 04/10/20 07:18 Urine - Urine Clean Catch Urine Culture - Final NO GROWTH OBTAINED ASSESSMENT AND PLAN: This patient is a 39yof with no significant PMHx, who presented with Suprapubic pain for 3 days. The abdominal pain is associated with nausea and an episode of Diarrhea. Her LMP was on February 04 2020, patient is currently on Depo-Provera injections every 3 months. Patient was admitted last night 04/09/2020, for acute apendicitis; presented with WBC of 13.6. # POD#4 s/p lap appendectomy for perforated appendix with walled off abscess in the right pelvis as per surgeon. s/p IV Zosyn, ID on the case, surgeon on the case. dc patient home on ceftin and flagyl for 10m days as per id RECOMMENDATIONS . FOLLW WITH SURGERY IN A WEEK # Covid not detected DVT px: SCds, heparin PER id: SUBSTITUTE CEFTIN 500MG PO BID + FLAGYL 500MG TID X 10D OUTPATIENT SURGICAL F/U
--- NOTE | 2020-04-14 14:39 | PN ---
Progress Note, Physician History of Present Illness: AWAKE, ALERT IN BED EATING SOLID FOOD NO COMPLAINTS NO N/V + BM NO F/C WBC WNL - Current Medication List Current Medications: Active Medications Acetaminophen (Tylenol -) 1,000 mg PO Q6H PRN PRN Reason: PAIN LEVEL 6-10 Last Admin: 04/14/20 09:39 Dose: 1,000 mg Documented by: Heparin Sodium (Porcine) (Heparin -) 5,000 unit SQ BID MERI Last Admin: 04/14/20 09:39 Dose: Not Given Documented by: Lactated Ringer's (Lactated Ringers Solution) 1,000 mls @ 125 mls/hr IV ASDIR MERI Last Admin: 04/12/20 18:33 Dose: Not Given Documented by: Piperacillin Sod/Tazobactam (Sod 3.375 gm/ Dextrose) 50 mls @ 100 mls/hr IVPB Q8H-IV MERI; Protocol Last Admin: 04/14/20 09:39 Dose: 100 mls/hr Documented by: Ketorolac Tromethamine (Toradol Injection -) 30 mg IVPUSH Q6H PRN PRN Reason: PAIN LEVEL 6-10 Stop: 04/15/20 16:59 Last Admin: 04/12/20 20:20 Dose: 30 mg Documented by: Ondansetron HCl (Zofran Injection) 4 mg IVPUSH Q6H PRN PRN Reason: NAUSEA AND/OR VOMITING - Objective Vital Signs: Vital Signs Temperature 98.2 F 04/14/20 08:59 Pulse Rate 77 04/14/20 08:59 Respiratory Rate 16 04/14/20 08:59 Blood Pressure 116/73 04/14/20 08:59 O2 Sat by Pulse Oximetry (%) 97 04/13/20 21:00 Constitutional: Yes: No Distress Eyes: Yes: Conjunctiva Clear Cardiovascular: Yes: Regular Rate and Rhythm, S1, S2 Respiratory: Yes: CTA Bilaterally Gastrointestinal: Yes: Normal Bowel Sounds, Soft. No: Tenderness Edema: No Labs: CBC, BMP 04/14/20 08:50 04/14/20 08:50 INR, PTT INR 1.12 (0.83-1.09) H 04/12/20 07:48 Assessment/Plan POD #4 LAPAROSCOPIC APPENDECTOMY/ DRAINAGE OF CONTAINED ABSCESS AFEBRILE WBC WNL C/S (-) DISCUSSED WITH SURGERY SUBSTITUTE CEFTIN 500MG PO BID + FLAGYL 500MG TID X 10D OUTPATIENT SURGICAL F/U
[2020-04-14] MEDS ORDERED: metroNIDAZOLE 250 MG TABLET PO SCH (14:45)
[2020-04-14 15:17] VITALS: BP 118/69; PULSE 74
[2020-04-14] MEDS ORDERED: PT OWN MED DRAWER 7, Y5N ONE (15:34)
--- NOTE | 2020-04-14 20:46 | DS ---
Physical Exam: SUBJECTIVE: Patient seen and examined bedside. In no acute distress. No acute events overnight. OBJECTIVE: Vital Signs - 8 hr 04/14/20 15:00 Temperature 98.2 F Pulse Rate 74 Respiratory 18 Rate Blood Pressure 118/69 PHYSICAL EXAM GENERAL: The patient is awake, alert, and fully oriented, in no acute distress. EYES: sclera anicteric, conjunctiva clear. NECK: Trachea midline, full range of motion, supple. LUNGS: Breath sounds equal, clear to auscultation bilaterally, no wheezes, no crackles, no accessory muscle use. HEART: Regular rate and rhythm, S1, S2 without murmur, rub or gallop. ABDOMEN: Soft, nonTTP [id number], nondistended, no guarding, no rebound. Lapascopic incision clean with no discharge. LLQ with MANSOOR draining minimal fluid. EXTREMITIES: 2+ pulses, warm, well-perfused, no edema. NEUROLOGICAL: Normal speech. Laboratory Tests 04/09/20 04/09/20 04/09/20 17:10 17:15 17:15 WBC 13.6 H RBC 4.46 Hgb 12.1 Hct 36.5 MCV 81.9 MCH 27.1 MCHC 33.1 RDW 14.2 Plt Count 246 MPV 8.4 Absolute Neuts (auto) 12.1 H Neutrophils % 88.4 H Lymphocytes % 7.2 L Monocytes % 3.3 L Eosinophils % 1.0 Basophils % 0.1 Nucleated RBC % 0 PT with INR INR PTT (Actin FS) 36.8 H Sodium Potassium Chloride Carbon Dioxide Anion Gap BUN Creatinine Est GFR (CKD-EPI)AfAm Est GFR (CKD-EPI)NonAf Random Glucose Lactic Acid Calcium Phosphorus Magnesium Total Bilirubin AST ALT Alkaline Phosphatase Total Protein Albumin Lipase Beta HCG, Quant Serum , Qual Urine Color Yellow Urine Appearance Clear Urine pH 5.5 Ur Specific Notus 1.033 Urine Protein 1+ H Urine Glucose (UA) Negative Urine Ketones Trace H Urine Blood 3+ H Urine Nitrite Negative Urine Bilirubin Negative Urine Urobilinogen 4.0 e.u/dl H Ur Leukocyte Esterase Negative Urine WBC (Auto) 10 Urine RBC (Auto) 180 Urine Casts (Auto) 2 U Epithel Cells (Auto) 16 Urine Bacteria (Auto) 69 COVID-19 (ISHA) Blood Type Antibody Screen 04/09/20 04/09/20 04/09/20 17:15 17:15 17:15 WBC RBC Hgb Hct MCV MCH MCHC RDW Plt Count MPV Absolute Neuts (auto) Neutrophils % Lymphocytes % Monocytes % Eosinophils % Basophils % Nucleated RBC % PT with INR INR PTT (Actin FS) Sodium 136 Potassium 3.5 Chloride 103 Carbon Dioxide 24 Anion Gap 9 BUN 8.0 Creatinine 0.8 Est GFR (CKD-EPI)AfAm 108.39 Est GFR (CKD-EPI)NonAf 93.52 Random Glucose 93 Lactic Acid 0.7 Calcium 9.3 Phosphorus Magnesium Total Bilirubin 0.7 AST 11 L ALT 12 L Alkaline Phosphatase 86 Total Protein 8.1 Albumin 4.3 Lipase 85 Beta HCG, Quant < 1.0 Serum , Qual Urine Color Urine Appearance Urine pH Ur Specific Notus Urine Protein Urine Glucose (UA) Urine Ketones Urine Blood Urine Nitrite Urine Bilirubin Urine Urobilinogen Ur Leukocyte Esterase Urine WBC (Auto) Urine RBC (Auto) Urine Casts (Auto) U Epithel Cells (Auto) Urine Bacteria (Auto) COVID-19 (ISHA) Blood Type A POSITIVE Antibody Screen Negative 04/09/20 04/10/20 04/10/20 17:15 00:40 05:15 WBC RBC Hgb Hct MCV MCH MCHC RDW Plt Count MPV Absolute Neuts (auto) Neutrophils % Lymphocytes % Monocytes % Eosinophils % Basophils % Nucleated RBC % PT with INR 14.20 H INR 1.20 H PTT (Actin FS) Sodium Potassium Chloride Carbon Dioxide Anion Gap BUN Creatinine Est GFR (CKD-EPI)AfAm Est GFR (CKD-EPI)NonAf Random Glucose Lactic Acid Calcium Phosphorus Magnesium Total Bilirubin AST ALT Alkaline Phosphatase Total Protein Albumin Lipase Beta HCG, Quant Serum , Qual Negative Urine Color Urine Appearance Urine pH Ur Specific Notus Urine Protein Urine Glucose (UA) Urine Ketones Urine Blood Urine Nitrite Urine Bilirubin Urine Urobilinogen Ur Leukocyte Esterase Urine WBC (Auto) Urine RBC (Auto) Urine Casts (Auto) U Epithel Cells (Auto) Urine Bacteria (Auto) COVID-19 (ISHA) Not detected Blood Type Antibody Screen 04/10/20 04/10/20 04/10/20 05:15 05:15 07:18 WBC 9.8 RBC 4.02 Hgb 10.9 Hct 32.9 MCV 81.8 MCH 27.0 MCHC 33.0 RDW 14.3 Plt Count 224 MPV 8.3 Absolute Neuts (auto) 8.4 H Neutrophils % 86.2 H Lymphocytes % 8.3 Monocytes % 3.5 L Eosinophils % 1.8 Basophils % 0.2 Nucleated RBC % 0 PT with INR INR PTT (Actin FS) Sodium 136 Potassium 3.6 Chloride 104 Carbon Dioxide 25 Anion Gap 7 L BUN 5.8 L Creatinine 0.8 Est GFR (CKD-EPI)AfAm 108.39 Est GFR (CKD-EPI)NonAf 93.52 Random Glucose 144 H Lactic Acid Calcium 8.9 Phosphorus 3.3 Magnesium 2.2 Total Bilirubin 1.0 AST 12 L ALT 12 L Alkaline Phosphatase 76 Total Protein 6.6 Albumin 3.4 Lipase Beta HCG, Quant Serum , Qual Urine Color Yellow Urine Appearance Clear Urine pH 7.0 D Ur Specific Notus 1.013 Urine Protein Negative Urine Glucose (UA) 2+ H Urine Ketones Negative Urine Blood 1+ H Urine Nitrite Negative Urine Bilirubin Negative Urine Urobilinogen 1.0 Ur Leukocyte Esterase Negative Urine WBC (Auto) 5 Urine RBC (Auto) 26 Urine Casts (Auto) 0 U Epithel Cells (Auto) 16 Urine Bacteria (Auto) 134 COVID-19 (ISHA) Blood Type Antibody Screen 04/11/20 04/11/20 04/12/20 09:18 09:18 07:48 WBC 9.4 5.8 RBC 3.79 3.46 L Hgb 10.0 L 9.3 L Hct 30.9 L 28.3 L MCV 81.4 81.7 MCH 26.4 26.8 MCHC 32.5 32.8 RDW 14.4 14.7 Plt Count 244 225 MPV 8.4 8.3 Absolute Neuts (auto) 3.9 Neutrophils % 67.4 D Lymphocytes % 23.0 D Monocytes % 6.3 Eosinophils % 2.9 Basophils % 0.4 Nucleated RBC % 0 PT with INR INR PTT (Actin FS) Sodium 136 Potassium 4.0 Chloride 107 Carbon Dioxide 24 Anion Gap 5 L BUN 3.8 L Creatinine 0.6 Est GFR (CKD-EPI)AfAm 134.01 Est GFR (CKD-EPI)NonAf 115.63 Random Glucose 129 H Lactic Acid Calcium 8.5 Phosphorus Magnesium Total Bilirubin AST ALT Alkaline Phosphatase Total Protein Albumin Lipase Beta HCG, Quant Serum , Qual Urine Color Urine Appearance Urine pH Ur Specific Notus Urine Protein Urine Glucose (UA) Urine Ketones Urine Blood Urine Nitrite Urine Bilirubin Urine Urobilinogen Ur Leukocyte Esterase Urine WBC (Auto) Urine RBC (Auto) Urine Casts (Auto) U Epithel Cells (Auto) Urine Bacteria (Auto) COVID-19 (ISHA) Blood Type Antibody Screen 04/12/20 04/12/20 04/14/20 07:48 07:48 08:50 WBC 6.7 RBC 4.38 Hgb 11.6 Hct 35.7 D MCV 81.5 MCH 26.6 MCHC 32.6 RDW 14.8 Plt Count 320 D MPV 7.9 Absolute Neuts (auto) Neutrophils % Lymphocytes % Monocytes % Eosinophils % Basophils % Nucleated RBC % PT with INR 13.20 H INR 1.12 H PTT (Actin FS) Sodium 141 Potassium 4.1 Chloride 110 H Carbon Dioxide 27 Anion Gap 4 L BUN 4.3 L Creatinine 0.8 Est GFR (CKD-EPI)AfAm 108.39 Est GFR (CKD-EPI)NonAf 93.52 Random Glucose 89 Lactic Acid Calcium 8.2 L Phosphorus 2.9 Magnesium 2.1 Total Bilirubin AST ALT Alkaline Phosphatase Total Protein Albumin Lipase Beta HCG, Quant Serum , Qual Urine Color Urine Appearance Urine pH Ur Specific Notus Urine Protein Urine Glucose (UA) Urine Ketones Urine Blood Urine Nitrite Urine Bilirubin Urine Urobilinogen Ur Leukocyte Esterase Urine WBC (Auto) Urine RBC (Auto) Urine Casts (Auto) U Epithel Cells (Auto) Urine Bacteria (Auto) COVID-19 (ISHA) Blood Type Antibody Screen 04/14/20 08:50 WBC RBC Hgb Hct MCV MCH MCHC RDW Plt Count MPV Absolute Neuts (auto) Neutrophils % Lymphocytes % Monocytes % Eosinophils % Basophils % Nucleated RBC % PT with INR INR PTT (Actin FS) Sodium 136 Potassium 3.9 Chloride 102 Carbon Dioxide 24 Anion Gap 9 BUN 4.9 L Creatinine 0.8 Est GFR (CKD-EPI)AfAm 108.39 Est GFR (CKD-EPI)NonAf 93.52 Random Glucose 131 H Lactic Acid Calcium 9.1 Phosphorus 4.0 Magnesium 2.3 Total Bilirubin AST ALT Alkaline Phosphatase Total Protein Albumin Lipase Beta HCG, Quant Serum , Qual Urine Color Urine Appearance Urine pH Ur Specific Notus Urine Protein Urine Glucose (UA) Urine Ketones Urine Blood Urine Nitrite Urine Bilirubin Urine Urobilinogen Ur Leukocyte Esterase Urine WBC (Auto) Urine RBC (Auto) Urine Casts (Auto) U Epithel Cells (Auto) Urine Bacteria (Auto) COVID-19 (ISHA) Blood Type Antibody Screen HOSPITAL COURSE: The patient presented with 3 days of worsening abdominal pain, nausea, vomiting and diarrhea. Patient was worked up for an acute abdomen. CT showed inflammatory changes in RLQ consistent with appendicitis. Patient was admitted to the floor for a laparoscopic appendectomy and started on IV Zosyn. During the lap appy the patient was found to have a perforated appendix with a walled off abscess. A MANSOOR drain was placed. Patient was evaluated by surgery and drain was removed 4 days post up (04/14). Infectious diseases also cleared patient with home antibiotics after completing 5 days of IV Zoysn. She was discharged on 10 days of oral metronidazole and cefitin and will follow up with surgery in a week. Date of Admission:04/10/20 Date of Discharge: 04/14/20 Minutes to complete discharge: 30 Discharge Summary Problems reviewed: Yes Reason For Visit: APPENDICITIS Condition: Good - Instructions Diet, Activity, Other Instructions: [place] DIGGS, Visit: You came in with a few days of worsening abdominal pain, nausea, vomiting and fever. You were found to have appendicitis. You underwent a laproscopic appendectomy performed by Dr. Gonzalez. During surgery it was discovered your appendix had burst and formed an abscess around the appendix. Because of this, surgery placed a drain in order to make sure all bacteria was cleared from you abdomen after surgery. Your surgical drain was removed prior to discharge. You also completed IV antibiotics while in the hospital. Medications Ceftin 500 mg orally TWO TIMES A DAY for 10 days Flagyl 500 mg orally THREE TIMES A DAY for 10 days avoid alcohol usage when on antibiotics Follow UP Please follow up with your primary care provider within the next 2 weeks. If you don't have a primary care provider please follow up a [facility] provider: [phone] Please follow up with Dr. Gonzalez's office for post operative care in 7 to 10 days after discharge. Post Operative Instructions Physical activity Resume your normal everyday activity as tolerated no heavy lifting or exercise until seen by your surgeon. You may walk unlimited amounts of and climb stairs. You may resume driving the car when you feel safe and comfortable behind the wheel. Wound care If you have a bandage, leave it on, and keep dry for 48 - 72 hours. After that time discard the outer bandage. If there are tapes on the skin under the outer bandage, leave them in place. They will peel off in the next 7 to 10 days. Do Not peel them off. You may shower 2 days after surgery. If there are tapes present on the skin, they can get wet. Diet There are no dietary restrictions. Eat healthy, high-fiber foods. Drink 6 to 8 glasses of liquid each day. This will assist in keeping your bowels are regular. Pain management You may take Tylenol or acetaminophen or Ibuprofen (for example, Motrin, Advil etc.) Any pain prescription medication ordered should be taken as prescribed for moderate to severe pain. Call Dr. Gonzalez for any of the following: Severe pain not relieved by medication Fever of 101 or higher Excessive bleeding or drainage on dressing Inability to urinate Call the office for a post operative appointment in 7 - 10 days. Referrals: Juan Santoyo [Staff Physician] - Disposition: HOME - Home Medications Comprehensive Discharge Medication List: Ambulatory Orders Medroxyprogesterone Acetate [Depo-Provera -] 1 vial MONTHLY 04/10/20 Cefuroxime Axetil [Ceftin -] 500 mg PO BID 10 Days #20 tablet 04/14/20 metroNIDAZOLE [Flagyl -] 500 mg PO DAILY #30 tablet 04/14/20 oxyCODONE HCL [Roxicodone -] 5 mg PO Q4H PRN #20 tablet MDD 6 04/14/20 This patient is new to me today: Yes Date on this admission: 04/10/20 Emergency Visit: Yes ED Registration Date: 04/10/20 Care time: The patient presented to the Emergency Department on the above date and was hospitalized for further evaluation of their emergent condition. Critical Care patient: No - Discharge Referral Referred to [facility] Med P.C.: No ATTENDING PHYSICIAN STATEMENT I saw and evaluated the patient. I reviewed the resident's note and discussed the case with the resident. I agree with the resident's findings and plan as documented. SUBJECTIVE: OBJECTIVE: ASSESSMENT AND PLAN:
[2020-04-14] MEDS ORDERED: CEFUROXIME AXETIL 500 MG TABLET PO SCH (22:00)
--- NOTE | 2020-04-16 13:44 | PATH ---
Surgical Pathology Report Patient Name: GISELE DIGGS Med. Rec. #: [id number] /Age/Gender: 1980 (Age: 39) / F Account: [id number] Location: [facility] MED/SURG Taken: 04/10/2020 Received: 04/14/2020 Reported: 04/16/2020 Physicians: Anatoly Tran M.D. Specimen(s) Received APPENDIX Clinical History Appendicitis Final Diagnosis APPENDIX, APPENDECTOMY: APPENDIX WITH APPENDICEAL DIVERTICULUM, ACUTE APPENDICITIS AND PERIAPPENDICITIS. Electronically Signed Anjelica Ramsey M.D. Gross Description Received in formalin labeled "appendix" are 2 portions of a markedly torn and disrupted appendix measuring 4.0 and 4.5 cm in length. The outer surfaces are ellis-brown with exudate and multifocal defects. The distal tip of appendix displays cystic pouch like lesions. Sectioning reveals a focally hemorrhagic lumen. The wall of the appendix averages 0.1 cm in thickness. Concession Cashier sections are submitted in 4 cassettes. /04/14/2020 [facility]/04/14/2020
--- NOTE | 2020-05-09 11:03 | OP ---
DATE OF OPERATION: 04/10/2020 PREOPERATIVE DIAGNOSIS: Acute appendicitis with abscess. POSTOPERATIVE DIAGNOSIS: Acute appendicitis with abscess. FINDINGS: Perforated appendix and walled-off abscess in the right pelvis and acute appendicitis. SURGEON: Juan Onofre MD ANESTHESIA: General. COMPLICATIONS: None. DISPOSITION: Patient tolerated procedure well. INDICATION: This is a 39-year-old female that presents with approximately 1-week history of abdominal pain. On physical exam, she was noted to have localized right lower quadrant tenderness. CT scan suggestive of a possible abscess in the pelvis, and the patient was taken to the operating room for a laparoscopic appendectomy and drainage of abscess. DESCRIPTION OF PROCEDURE: In the operating room, she was placed in supine position. After induction of general anesthesia, she was prepped and draped in the usual sterile fashion. The operation was begun with a periumbilical incision performed with a scalpel. A 12-mm port was introduced under direct vision into this incision. Insufflation to a pressure of 15 mmHg was established. Two 5-mm ports were placed, one in the suprapubic position and one in the left lower quadrant. The appendix on direct visualization appeared to be tracking down towards the pelvic foramen into this walled-off area of the ovary and fallopian tube. This area was then entered with some blunt dissection, and it revealed an abscess cavity with approximately about 15 mL of purulent material which was drained. Abscess cavity included the tip of the appendix which was dissected off and then brought into the field to more clearly visualize the full length of the appendix and be able to perform the rest of the operation. The mesoappendix with a LigaSure, and the base of the appendix was then transected with Endo NAGA stapler purple cartridge and placed in an EndoCatch bag. The right lower quadrant and pelvis were irrigated. Abscess cavity was copiously irrigated and suctioned. Viktor-Sargent drain was left within the abscess cavity. Specimen was brought through the umbilical port in an EndoCatch bag. The ports were removed under direct vision. The fascia at the umbilical ports closed with 0 Vicryl sutures. The skin was closed with 4-0 Monocryl, port sites and the patient returned to the recovery room awake and alert, in stable condition. She tolerated the procedure well. JUAN ONOFRE M.D. JESUS/[id number]
== END 2020-04-14 18:52 | disposition home or self-care (01) | DRG 225 ==
LOC: JER 16:25 → JERBED 04-10 01:02 → J8W 04-10 14:22
PROVIDERS: ADMIT Internal Medicine; ATTEND Internal Medicine
PROC: 0DTJ4ZZ Resection of Appendix, Percutaneous Endoscopic Approach (ICD-10-PCS; 2020-04-10)
PROC: 0DTJ4ZZ Resection of Appendix, Percutaneous Endoscopic Approach (ICD-10-PCS; principal; 2020-04-10 13:30)
DX: K35.33 Acute appendicitis with perforation, localized peritonitis, and gangrene, with abscess (principal); R31.9 Hematuria, unspecified; R19.7 Diarrhea, unspecified
CPT/HCPCS: 36415; 74176-TC; 74177-TC; 80048; 80053; 81003; 83605; 83690; 83735; 84100; 84702; 84703; 85025; 85027; 85610; 85730; 86850; 86900; 86901; 87040; 87086; 88304-TC; 93005; 93010; 94010; 94760; 97116-GP; 97161-GP; 99285-25; J0131; J1644; U0003